=== PATIENT | female | born 1990 | race Caucasian/White ===

== ENCOUNTER → 2020-01-07 02:45 | Outpatient (BNVA) | payer MEDICAID, SELFPAY | PROVIDERS: Family Provider Family Medicine; Visit Provider Obstetrics & Gynecology Female Pelvic Medicine and Reconstructive Surgery | DX: N30.90 Cystitis, unspecified without hematuria (principal); N89.8 Other specified noninflammatory disorders of vagina; N76.0 Acute vaginitis; R10.819 Abdominal tenderness, unspecified site | CPT/HCPCS: 80053 ==

== ENCOUNTER → 2020-01-22 09:42 | Outpatient (BNVA) | payer MEDICAID, SELFPAY | PROVIDERS: Family Provider Family Medicine; Referring Provider Obstetrics & Gynecology Female Pelvic Medicine and Reconstructive Surgery; Visit Provider Obstetrics & Gynecology Female Pelvic Medicine and Reconstructive Surgery | DX: R10.2 Pelvic and perineal pain (principal) | CPT/HCPCS: 76830 ==

== ENCOUNTER 2020-01-27 12:16 | Outpatient (CLI) | payer MEDICAID, SELFPAY ==
[2020-01-27 12:50] LABS: Estmated Average Glucose 117; Hemoglobin A1C 5.7 % (4.0-6.0)
== END 2020-01-27 12:17 | disposition home or self-care (01) ==
LOC: LAB 12:17
PROVIDERS: Family Provider Family Medicine; PCP Nurse Practitioner Family; Visit Provider Obstetrics & Gynecology Female Pelvic Medicine and Reconstructive Surgery
DX: E66.01 Morbid (severe) obesity due to excess calories (principal)
CPT/HCPCS: 36415; 83036

== ENCOUNTER → 2020-03-09 08:51 | Outpatient (BNVA) | payer MEDICAID, SELFPAY | PROVIDERS: Family Provider Family Medicine; Visit Provider Psychiatry & Neurology Psychiatry | DX: F41.1 Generalized anxiety disorder (principal); F33.1 Major depressive disorder, recurrent, moderate | CPT/HCPCS: 99204 ==

== ENCOUNTER → 2020-04-07 08:42 | Outpatient (BNVA) | payer MEDICAID, SELFPAY | PROVIDERS: Family Provider Family Medicine; Visit Provider Counselor Professional | DX: F33.1 Major depressive disorder, recurrent, moderate (principal); F41.1 Generalized anxiety disorder | CPT/HCPCS: 90834 ==

== ENCOUNTER → 2020-04-08 07:53 | Outpatient (BNVA) | payer MEDICAID, SELFPAY | PROVIDERS: Family Provider Family Medicine; Visit Provider Psychiatry & Neurology Psychiatry | DX: F33.1 Major depressive disorder, recurrent, moderate (principal); F41.1 Generalized anxiety disorder | CPT/HCPCS: 99213 ==

== ENCOUNTER → 2020-04-30 08:51 | Outpatient (BNVA) | payer MEDICAID, SELFPAY | PROVIDERS: Family Provider Family Medicine; Visit Provider Counselor Professional | DX: F33.1 Major depressive disorder, recurrent, moderate (principal); F41.1 Generalized anxiety disorder | CPT/HCPCS: 90834 ==

== ENCOUNTER → 2020-05-20 09:08 | Outpatient (BNVA) | payer MEDICAID, SELFPAY | PROVIDERS: Family Provider Family Medicine; Visit Provider Psychiatry & Neurology Psychiatry | DX: F33.1 Major depressive disorder, recurrent, moderate (principal); F41.1 Generalized anxiety disorder | CPT/HCPCS: 99213 ==

== ENCOUNTER 2020-06-14 20:41 | Emergency (ER) | payer MEDICAID, SELFPAY ==
[2020-06-14 20:58] VITALS: BP 142/88; PULSE 69; RESP 16; TEMP 36.6; O2SAT 99; BMI 57.9
--- NOTE | 2020-06-14 21:53 | ECG_ITS ---
[facility] Test Date: 2020-06-14 Pat Name: Ally Savage Department: Room: Gender: Female Administrator Of Home Health: : 1990 Requested By: Long Araya Order Number: [id number] Gill MD: Fern Jean M.D. Measurements Intervals [place] Rate: 70 P: 38 OH: 172 QRS: 58 QRSD: 94 T: 43 QT: 373 QTc: 404 Interpretive Statements SINUS RHYTHM Compared to ECG 12/10/2018 07:56:26 Sinus bradycardia no longer present Electronically Signed On 06-15-2020 7:46:08 CDT by Fern Jean M.D. [email or web address] - Private Location [id number] f
--- NOTE | 2020-06-14 21:54 | XRR_ITS ---
PROCEDURE INFORMATION: Exam: XR Chest, 2 Views Exam date and time: 06/14/2020 10:35 PM Age: 29 years old Clinical indication: Chest pain; Type not specified; Additional info: SOB TECHNIQUE: Imaging protocol: XR of the chest Views: 2 views. COMPARISON: CR (CHEST, ) 06/14/2020 9:36 PM FINDINGS: Lungs: Lungs are clear. Pleural space: There is no pleural effusion or pneumothorax. Heart/Mediastinum: Cardiomediastinal contours are unremarkable. Bones/joints: Bones are unremarkable. XR/XR chest 2V* [id number] IMPRESSION: No acute findings.
[2020-06-14 23:20] LABS: Basophils # 0.1 10^3/uL (0.0-0.1); Basophils % 1.2 %; Eosinophils # 0.1 10^3/uL (0.0-0.8); Eosinophils % 2.8 %; Hemoglobin 14.6 g/dL (11.5-15.3); Mean Corpuscular HGB Conc 30.4 g/dL (30.0-36.0); Mean Corpuscular Hemoglobin 27.5 pg (28.0-34.0); Mean Corpuscular Volume 90.6 fL (81-99); Mean Platelet Volume 9.7 fL (7.4-10.4); Monocytes # 0.5 10^3/uL (0.2-0.9); Monocytes % 9.3 %; Neutrophils # 2.39 10^3/uL (1.8-7.7); Neutrophils % 47.3 %; Nucleated Red Blood Cells % 0 %; Platelet Count 231 10^3/cmm (130-400); Red Cell Distribution Width 13.5 % (12.1-15.1); White Blood Count 5.1 10^3/uL (4.0-10.0)
--- NOTE | 2020-06-14 23:22 | W.ED.SOB ---
HPI - SOB/Dyspnea General: Chief Complaint: Shortness of Breath/Dyspnea Stated Complaint: sob/cp Time Seen by Provider: 06/14/20 21:49 History of Present Illness: HPI Narrative: 29-year-old female complains of chest discomfort, and shortness of breath all day today. She said it started this morning. She is taken Tums, Mylanta, and other antacids without any relief. She denies any long car trips. She has had a minimal cough, with no sputum production, and no fever. She is tested for COVID every week where she works, and has been negative. She had the disease back in March. Pain is sharp, pleuritic in nature, worsens with deep breathing. MD elicited complaint: shortness of breath and chest pain Onset (ago): hour(s) Timing: constant Severity: moderate Exacerbating factors: movement, coughing and deep breaths Relieving factors: nothing Associated symptoms: Reports chest pain and cough (Minimal); Deny abdominal pain, chest congestion, dizziness, fever(s), nausea or rash Treatment prior to arrival: other Review of Systems Const: Denies: fever(s) Eyes: Denies: change in vision ENMT: Denies: swelling of lips/tongue, change in hearing or sinus pain Card: Reports: chest pain Resp: Denies: chest congestion GI: Denies: abdominal pain or nausea : Denies: dysuria or hematuria Musc: Denies: neck pain, back pain, joint redness or joint warmth Skin/Breast: Denies: rash, pruritus or erythema Neuro: Denies: headache(s), dizziness or vertigo Psych: Denies: anxiety PFSH ED PFSH: Medical History (Updated 06/15/20 @ 00:43 by Long Naranjo DO) Chronic migraine w/o aura w/o status migrainosus, not intractable Family History Father Heart disease Breast cancer Mother Heart disease Diabetes Hypercholesteremia Thyroid disease Hypertension Grandmother Breast cancer maternal Social History (Updated 03/09/20 @ 09:11 by Omer Bashir LPN) Smoking and tobacco status: never smoked Second hand smoke exposure: Yes (Occasionally) Smoking risk assessment/counseling performed?: No Alcohol intake: current Alcohol intake frequency: few times a month Alcohol type: hard liquor Current gender identity: Female Physical Exam Const: GENERAL APPEARANCE: well developed ORIENTATION/CONSCIOUSNESS: Yes oriented to person, Yes oriented to place and Yes oriented to time HENMT: COMMON NORMALS: normocephalic, external ears normal and Normal external nose present HEAD & SCALP: normocephalic FACE & SINUS: normal facial exam NOSE: Normal external nose present and No nasal discharge present EXTERNAL EAR: Yes external ears normal Eye: COMMON NORMALS: Equal, round and reactive pupils present, EOMs intact bilaterally and conjunctivae normal EYELID: eyelids normal CONJUNCTIVA: Yes conjunctivae normal PUPIL: Yes Equal, round and reactive pupils present Neck/C-Spine: GENERAL: No tracheal deviation Chest: COMMONS NORMALS: normal inspection of the chest CHEST: Yes tenderness Resp: COMMON NORMALS: clear to auscultation bilaterally EFFORT & INSPECTION: No tachypneic, No respiratory distress, No retractions, No uses accessory muscles and No tracheal deviation AUSCULTATION: clear to auscultation bilaterally, no rhonchi, no wheezes and lung sounds not diminished Cardio: COMMON NORMALS: regular rate and regular rhythm RATE: regular rate RHYTHM: regular rhythm HEART SOUNDS: no murmurs PERIPHERAL PULSES: radial pulses present GI: INSPECTION: No abdominal distension AUSCULTATION: No Hyperactive bowel sounds present and No Hypoactive bowel sounds present PALPATION: No Guarding due to palpation present (GI) and No Rigid due to palpation PERCUSSION: no dullness to percussion and no tympanic to percussion Neuro: SENSORIUM/ORIENTATION: Yes oriented to person, Yes oriented to place and Yes oriented to time Psych: COMMON NORMALS: mental status grossly normal Skin: COMMON NORMALS: no rashes or lesions noted GENERAL SKIN EXAM: no rashes or lesions noted Course Vital Signs: Vital signs: Vital Signs Temperature 97.9 F 06/14/20 20:58 Pulse Rate 60 06/15/20 01:24 Respiratory Rate 17 06/15/20 01:24 Blood Pressure 149/66 06/15/20 01:24 Pulse Oximetry 95 06/15/20 01:24 MDM - SOB/Dyspnea MDM Narrative: Medical decision making narrative: 29-year-old female with chest discomfort, and some shortness of breath. She is screened for COVID every week, and has been negative. She actually had the illness in March. Her chest x-ray is negative. Her white blood cell count is 5. Her hemoglobin is 14.6. Her troponin is negative. She has a normal sinus rhythm with no ST changes on EKG. Her d-dimer is negative. GI cocktail did not significantly relieve her pain. She has reproducible chest wall tenderness. She will be treated for costochondritis Lab Data: Labs: Lab Results 06/14/20 06/14/20 06/14/20 Range/Units 23:10 23:10 23:10 WBC 5.1 (4.0-10.0) 10^3/ uL RBC 5.30 (4.1-5.3) 10^6/u L Hgb 14.6 (11.5-15.3) g/dL Hct 48.0 H (37.0-47.0) % MCV 90.6 (81-99) fL MCH 27.5 L (28.0-34.0) pg MCHC 30.4 (30.0-36.0) g/dL RDW 13.5 (12.1-15.1) % Plt Count 231 (130-400) 10^3/c mm MPV 9.7 (7.4-10.4) fL Neut % (Auto) 47.3 % Lymph % (Auto) 39.0 % [place] % (Auto) 9.3 % Eos % (Auto) 2.8 % Baso % (Auto) 1.2 % Neut # (Auto) 2.39 (1.8-7.7) 10^3/u L Lymph # (Auto) 2.0 (0.8-4.8) 10^3/u L [place] # (Auto) 0.5 (0.2-0.9) 10^3/u L Eos # (Auto) 0.1 (0.0-0.8) 10^3/u L Baso # (Auto) 0.1 (0.0-0.1) 10^3/u L Nucleated RBC % (a uto) 0 % Nucleated RBCs # 0.0 /100WBC D-Dimer 0.31 (0-0.59) ug/mIFE U Sodium 139 (136-145) mmol/L Potassium 4.3 (3.5-5.1) mmol/L Chloride 105 (98-107) mmol/L Carbon Dioxide 22 (22-29) mmol/L Anion Gap 16.3 (5-19) BUN 12 (6-20) mg/dL Creatinine 0.8 (0.5-0.9) mg/dL GFR Calculation 84.8 L (90-130) mL/min Glucose 101 (65-115) mg/dL Calculated Osmolal ity 284 L (285-295) mOsm/k g Calcium 8.8 (8.5-10.5) mg/dL Total Bilirubin 0.2 (0.15-1.2) mg/dL AST 19 (0-32) U/L ALT 41 H (0-33) U/L Alkaline Phosphata se 95 (35-105) IU/L Troponin T Gen 5 n g/L (0-10) ng/L C-Reactive Protein 5.1 H (0.0-4.9) mg/L Total Protein 6.6 (6.6-8.7) g/dL Albumin 4.2 (3.5-5.2) g/dL Globulin 2.4 (1.3-4.6) g/dL HCG, Qual (Negative) 06/14/20 06/14/20 Range/Units 23:10 23:10 WBC (4.0-10.0) 10^3/ uL RBC (4.1-5.3) 10^6/u L Hgb (11.5-15.3) g/dL Hct (37.0-47.0) % MCV (81-99) fL MCH (28.0-34.0) pg MCHC (30.0-36.0) g/dL RDW (12.1-15.1) % Plt Count (130-400) 10^3/c mm MPV (7.4-10.4) fL Neut % (Auto) % Lymph % (Auto) % [place] % (Auto) % Eos % (Auto) % Baso % (Auto) % Neut # (Auto) (1.8-7.7) 10^3/u L Lymph # (Auto) (0.8-4.8) 10^3/u L [place] # (Auto) (0.2-0.9) 10^3/u L Eos # (Auto) (0.0-0.8) 10^3/u L Baso # (Auto) (0.0-0.1) 10^3/u L Nucleated RBC % (a uto) % Nucleated RBCs # /100WBC D-Dimer (0-0.59) ug/mIFE U Sodium (136-145) mmol/L Potassium (3.5-5.1) mmol/L Chloride (98-107) mmol/L Carbon Dioxide (22-29) mmol/L Anion Gap (5-19) BUN (6-20) mg/dL Creatinine (0.5-0.9) mg/dL GFR Calculation (90-130) mL/min Glucose (65-115) mg/dL Calculated Osmolal ity (285-295) mOsm/k g Calcium (8.5-10.5) mg/dL Total Bilirubin (0.15-1.2) mg/dL AST (0-32) U/L ALT (0-33) U/L Alkaline Phosphata se (35-105) IU/L Troponin T Gen 5 n g/L 6 (0-10) ng/L C-Reactive Protein (0.0-4.9) mg/L Total Protein (6.6-8.7) g/dL Albumin (3.5-5.2) g/dL Globulin (1.3-4.6) g/dL HCG, Qual Negative (Negative) Discharge Plan Discharge Patient Disposition: Home Clinical Impression: Anterior chest wall pain Condition: Stable Prescriptions: [place] 5-325 mg tablet 1 tab PO Q6H Qty: 10 RF: 0 Medrol (Antony) 4 mg tablets,dose pack See Rx Instructions .ROUTE .COMPLEX Qty: 21 RF: 0 No Action cholecalciferol (vitamin D3) PO DAILY RF: 0 acetaminophen [Tylenol Extra Strength] 500 mg tablet 1,000 mg PO TID PRNRF: 0 ibuprofen 800 mg tablet 800 mg PO BID PRN (Reason: pain) RF: 0 hydroxyzine HCl 25 mg tablet 50 mg PO .HS PRN (Reason: sleep) Qty: 60 RF: 2 buspirone 15 mg tablet 15 mg PO TID Qty: 90 RF: 2 topiramate [Topamax] 50 mg tablet 50 mg PO DAILY Qty: 90 RF: 3 terconazole 0.8 % cream 1 appful VAGINAL DAILY PRN (Reason: candidiASIS) 7 Days Qty: 20 RF: 2 Discharge Orders: Discharge Order (Routine); Ordered 06/15/20 Ordered By: Long Naranjo Referrals: Xuan Pineda FNP [Primary Care Provider] - 4-7 days Discharge Diet: Advance as tolerated Discharge Activity: Increase activity as tolerated Patient Instructions: Chest Pain (ED), Costochondritis (ED) Activity Restrictions/Additional Instructions: Return for worsening pain despite treatment, worsening shortness of breath, fever greater than 100, other concerning symptoms Discharge Date/Time: 06/15/20 01:24 Coding Level of Care Code ED Vocational Case Manager for Chg Fwd Exam Comprehensive
[2020-06-14 23:34] LABS: HCG, Serum Qual Negative (Negative)
[2020-06-14 23:41] LABS: Alanine Aminotransferase 41 U/L (0-33); Albumin Level 4.2 g/dL (3.5-5.2); Alkaline Phosphatase 95 IU/L (35-105); Aspartate Amino Transferase 19 U/L (0-32); Blood Urea Nitrogen 12 mg/dL (6-20); C Reactive Protein 5.1 mg/L (0.0-4.9); Calcium 8.8 mg/dL (8.5-10.5); Carbon Dioxide 22 mmol/L (22-29); Chloride 105 mmol/L (98-107); Globulin 2.4 g/dL (1.3-4.6); Glomerular Filtration Rate 84.8 mL/min (90-130); Glucose 101 mg/dL (65-115); Osmolality Calculated 284 mOsm/kg (285-295); Sodium 139 mmol/L (136-145); Total Bilirubin 0.2 mg/dL (0.15-1.2); Total Protein 6.6 g/dL (6.6-8.7)
[2020-06-14 23:43] LABS: Troponin T (5th) Once 6 ng/L (0-10)
[2020-06-14 23:45] LABS: Anion Gap 16.3 (5-19); Potassium 4.3 mmol/L (3.5-5.1)
[2020-06-14 23:53] VITALS: BP 169/80; PULSE 69; RESP 18; O2SAT 98
[2020-06-15 00:13] LABS: D Dimer 0.31 ug/mIFEU (0-0.59)
[2020-06-15] MEDS: lidocaine 2% viscous 15 ML, aluminum-mag hydrox-simethicon 30 ML, sucralfate oral liq 1 GM PO (00:29)
[2020-06-15 00:34] VITALS: RESP 18; O2SAT 97
[2020-06-15] MEDS: fentaNYL 50 mcg/mL INJ 2mL 100 MCG IVP (00:34)
[2020-06-15] MEDS: ketorolac 30 mg/mL INJ IVP (00:37)
[2020-06-15 00:39] VITALS: BP 154/88; PULSE 66; RESP 18; O2SAT 98
[2020-06-15] MEDS: ondansetron 2 mg/ML SDV 2 mL 4 MG IVP (01:10)
[2020-06-15 01:24] VITALS: BP 149/66; PULSE 60; RESP 17; O2SAT 95
== END 2020-06-15 01:24 | disposition home or self-care (01) ==
PROVIDERS: Emergency Provider Emergency Medicine; PCP Nurse Practitioner Family
DX: R07.89 Other chest pain (principal); Z77.22 Contact with and (suspected) exposure to environmental tobacco smoke (acute) (chronic)
CPT/HCPCS: 12345; 71045; 71046; 80053; 84484; 84703; 85025; 85378; 86140; 93005; 96374; 96375; 99282; 99284; J1885; J2405; J3010

== ENCOUNTER → 2020-06-18 08:38 | Outpatient (BNVA) | payer MEDICAID, SELFPAY | PROVIDERS: Family Provider Family Medicine; Visit Provider Counselor Professional | DX: F41.1 Generalized anxiety disorder (principal); F33.1 Major depressive disorder, recurrent, moderate | CPT/HCPCS: 90834 ==

== ENCOUNTER → 2020-07-09 13:02 | Outpatient (BNVA) | payer MEDICAID, SELFPAY | PROVIDERS: Family Provider Family Medicine; Visit Provider Nurse Practitioner Family | DX: J02.9 Acute pharyngitis, unspecified (principal) | CPT/HCPCS: 87071; 87880 ==

== ENCOUNTER → 2020-08-12 09:13 | Outpatient (BNVA) | payer MEDICAID, SELFPAY | PROVIDERS: Family Provider Family Medicine; Visit Provider Psychiatry & Neurology Psychiatry | DX: F33.1 Major depressive disorder, recurrent, moderate (principal); F41.1 Generalized anxiety disorder | CPT/HCPCS: 99214 ==

== ENCOUNTER → 2020-09-10 08:28 | Outpatient (BNVA) | payer MEDICAID, SELFPAY | PROVIDERS: Family Provider Family Medicine; Visit Provider Psychiatry & Neurology Psychiatry | DX: F33.1 Major depressive disorder, recurrent, moderate (principal); F41.1 Generalized anxiety disorder | CPT/HCPCS: 99213 ==

== ENCOUNTER → 2020-09-22 10:39 | Outpatient (BNVA) | payer MEDICAID, SELFPAY | PROVIDERS: Family Provider Family Medicine; Visit Provider Obstetrics & Gynecology | DX: N89.8 Other specified noninflammatory disorders of vagina (principal); N93.8 Other specified abnormal uterine and vaginal bleeding; R68.82 Decreased libido; F33.1 Major depressive disorder, recurrent, moderate | CPT/HCPCS: 83001 ==

== ENCOUNTER → 2020-10-27 09:53 | Outpatient (BNVA) | payer MEDICAID, SELFPAY | PROVIDERS: Family Provider Family Medicine; Visit Provider Psychiatry & Neurology Psychiatry | DX: F33.1 Major depressive disorder, recurrent, moderate (principal); F41.1 Generalized anxiety disorder | CPT/HCPCS: 99214 ==

== ENCOUNTER → 2020-11-28 10:15 | Outpatient (BNVA) | payer MEDICAID, SELFPAY | PROVIDERS: Family Provider Family Medicine; Visit Provider Orthopaedic Surgery | DX: Z20.822 Contact with and (suspected) exposure to COVID-19 (principal); R22.32 Localized swelling, mass and lump, left upper limb | CPT/HCPCS: 87635 ==

== ENCOUNTER → 2020-12-02 08:26 | Outpatient (BNVA) | payer MEDICAID, SELFPAY | PROVIDERS: Family Provider Family Medicine; Visit Provider Psychiatry & Neurology Psychiatry | DX: F41.1 Generalized anxiety disorder (principal); F33.1 Major depressive disorder, recurrent, moderate | CPT/HCPCS: 99213 ==

== ENCOUNTER 2020-12-03 06:14 | Day surgery (SDC) | payer MEDICAID, SELFPAY ==
[2020-12-02 08:29] VITALS: BMI 57.6
[2020-12-03 06:42] VITALS: BP 141/94; PULSE 66; RESP 18; TEMP 36.6; O2SAT 100
[2020-12-03] MEDS: sodium chloride 0.9% 1,000 ML 30 ML IV (07:00)
--- NOTE | 2020-12-03 07:37 | W.PM.OPSUD ---
Surgery/Procedure H&P Update DATE OF PROCEDURE: December 03, 2020 DATE H&P PERFORMED: 11/17/20 PREOP DIAGNOSIS: Mass left wrist PLANNED PROCEDURE: Operation Date: 12/03/20 08:00 Proposed Procedures p Excision of mass of left wrist 88570 R22.32(Left) - Shayne Borrego MD
--- NOTE | 2020-12-03 07:48 | ANES.PREANE2 ---
Pre-Anesthetic Assessment Pre-Anesthetic Assessment: Height/Weight: Height 1.7 m Weight 166.922 kg Temp Pulse Resp BP Pulse Ox 97.9 F 66 18 141/94 100 12/03/20 06:42 12/03/20 06:42 12/03/20 06:42 12/03/20 06:42 12/03/20 06:42 Preop Diagnosis: Mass left wrist Proposed Procedure: Operation Date: 12/03/20 08:00 Proposed Procedures p Excision of mass of left wrist 58207 R22.32(Left) - Shayne Borrego MD Was Beta Faith taken within 24 hours: N/A Last intake: Intake Last Liquid Date 12/02/20 Last Liquid Time 23:45 Last Solid Date 12/02/20 Last Solid Time 20:00 Social: Social History: No alcohol and No tobacco Exam: Pre-Anes Outpt Exam: alert, oriented x 3, clear to auscultation bilaterally and regular rate & rhythm Airway: Submandibular: WNL Cervical ROM: WNL MP: 2 Dentition: Full Metabolic: Metabolic: Morbid obesity Neuropsych: Neuropsych: Anxiety, Depression and ROMERO Anesthetic Plan: ASA status: 3 Anesthesia: MAC Risk of > 500 ml blood loss (7ml/kg in children): No PFSH Anesthesia PFSH: Medical History Chronic migraine w/o aura w/o status migrainosus, not intractable Surgical History History of bilateral tubal ligation History of section, low transverse History of hysterectomy (~05/15/19) Total vaginal hysterectomy converted to a total abdominal hysterectomy with Dr. Kelley Family History Father Heart disease Breast cancer Mother Heart disease Diabetes Hypercholesteremia Thyroid disease Hypertension Grandmother Breast cancer maternal Social History Smoking and tobacco status: never smoked Alcohol intake: current Alcohol intake frequency: few times a month Alcohol type: hard liquor Data Anesthesia Cardiac Studies: No Data to Display
--- NOTE | 2020-12-03 08:35 | PM.OP ---
Operative Report Date of procedure: December 03, 2020 Pre-op Diagnosis: Mass left wrist Post-op diagnosis: same Post-op Diagnosis: Ganglion left wrist Post-op Findings: Same Procedure Done: Excision ganglion left wrist Specimens removed/disposition: Ganglion was removed but not sent for pathology Surgeon: Shayne Borrego Anesthesia: MAC and Local Estimated blood loss (mL): 5 Tourniquet time (min): 8 Complications: None Findings: Patient had a ganglion cyst over the central dorsal wrist approximately 1 cm in diameter adherent to the extensor Condition: stable Disposition: PACU Procedure: The patient was taken to the operating room and given a sedation by the anesthesia service. The left upper extremity was prepped and draped with a tourniquet on the left forearm. The tourniquet was inflated to 250 mmHg. A 1 cm transverse incision was made over the central dorsal wrist and dissection carried down bluntly revealing the ganglion. Utilizing a mosquito hemostat it was sequentially dissected off of the extensor tendon. The tourniquet was deflated. What minimal bleeding encountered was a dealt with with electrocautery. Skin edges were closed with two 3-0 Prolene sutures. Xeroflo gauze, 4 x 4's, and a compressive wrap were applied. The patient was taken recovery room in stable condition.
[2020-12-03 08:37] VITALS: BP 125/75; PULSE 67; RESP 18; TEMP 36.6; O2SAT 97
[2020-12-03 09:07] VITALS: BP 123/74; PULSE 69; RESP 18; TEMP 36.6; O2SAT 97
--- NOTE | 2020-12-03 11:44 | ANE.PACU2 ---
Inpatient post-anesthesia follow up: Airway intact: Yes Vital signs: Temperature 97.9 F Pulse Rate 69 Respiratory Rate 18 Blood Pressure 123/74 Pulse Oximetry 97 Oxygen Delivery Me thod Room Air Oxygen Flow Rate Fraction of Inspir ed Oxygen Hydration adequate: Yes Nausea and vomiting: No Pain level: 1 Mental status: Baseline
== END 2020-12-03 09:20 | disposition home or self-care (01) ==
PROVIDERS: PCP Nurse Practitioner Family; Visit Provider Orthopaedic Surgery
PROC: (CPT 25111; principal; 2020-12-03 08:00)
DX: M67.432 Ganglion, left wrist (principal); E66.01 Morbid (severe) obesity due to excess calories; Z68.43 Body mass index [BMI] 50.0-59.9, adult; F41.9 Anxiety disorder, unspecified; F32.9 Major depressive disorder, single episode, unspecified
CPT/HCPCS: 25111; J0690; J2250; J2704; J3010; J3490; J7030

== ENCOUNTER 2020-12-16 09:02 | Outpatient (CLI) | payer MEDICAID, SELFPAY | END 2020-12-16 09:03 | disposition home or self-care (01) | LOC: SPT 09:03 | PROVIDERS: PCP Nurse Practitioner Family; Visit Provider Orthopaedic Surgery | DX: Z46.89 Encounter for fitting and adjustment of other specified devices (principal); R22.32 Localized swelling, mass and lump, left upper limb | CPT/HCPCS: L3908 ==

== ENCOUNTER → 2020-12-31 07:43 | Outpatient (BNVA) | payer MEDICAID, SELFPAY | PROVIDERS: PCP Nurse Practitioner Family; Visit Provider Counselor Professional | DX: F33.1 Major depressive disorder, recurrent, moderate (principal); F41.1 Generalized anxiety disorder | CPT/HCPCS: 90834 ==

== ENCOUNTER 2021-03-11 06:00 | Outpatient (RCR) | payer MEDICAID, SELFPAY | END 2021-04-07 23:59 | disposition home or self-care (01) | LOC: SPT 06:00 | PROVIDERS: PCP Nurse Practitioner Family; Referring Provider Nurse Practitioner Family; Visit Provider Nurse Practitioner Family | DX: M54.16 Radiculopathy, lumbar region (principal) | CPT/HCPCS: 97110; 97161; G0283 ==

== ENCOUNTER → 2021-05-25 15:53 | Outpatient (BNVA) | payer OTHER, SELFPAY | PROVIDERS: PCP Nurse Practitioner Family; Visit Provider Psychiatry & Neurology Psychiatry | DX: F33.1 Major depressive disorder, recurrent, moderate (principal); F41.1 Generalized anxiety disorder | CPT/HCPCS: 99214 ==

== ENCOUNTER → 2021-06-10 08:27 | Outpatient (BNVA) | payer MEDICAID, SELFPAY | PROVIDERS: PCP Nurse Practitioner Family; Referring Provider Nurse Practitioner Family; Visit Provider Anesthesiology Pain Medicine | DX: M51.16 Intervertebral disc disorders with radiculopathy, lumbar region (principal); M47.816 Spondylosis without myelopathy or radiculopathy, lumbar region; M79.604 Pain in right leg; M79.605 Pain in left leg | CPT/HCPCS: 99204 ==

== ENCOUNTER → 2021-07-08 08:38 | Outpatient (BNVA) | payer MEDICAID, SELFPAY | PROVIDERS: PCP Nurse Practitioner Family; Visit Provider Anesthesiology Pain Medicine | DX: M51.16 Intervertebral disc disorders with radiculopathy, lumbar region (principal); M47.816 Spondylosis without myelopathy or radiculopathy, lumbar region; M79.604 Pain in right leg; M79.605 Pain in left leg | CPT/HCPCS: 99213 ==

== ENCOUNTER 2021-07-08 09:42 | Outpatient (CLI) | payer MEDICAID, SELFPAY ==
--- NOTE | 2021-07-08 09:46 | XR_ITS ---
WS: [id number] LUMBAR SPINE FLEXION AND EXTENSION TECHNIQUE: 3 views of the lumbar spine: Lateral neutral, flexion, and extension views. CLINICAL INFORMATION: M47.816 - Spondylosis without myelopathy or radiculopathy... COMPARISON: None. FINDINGS: Slight exaggeration of the normal lumbar lordosis. Disc space narrowing worse L5-S1. No instability o n flexion-extension. Chronic anterior wedging L1. Slight retrolisthesis L2 on L3. XR/XR lumbar spine f/e only [id number] IMPRESSION: 1. Disc space narrowing worse at L5-S1. Mild disc space narrowing L2-3 and L3- 4. 2. No instability on flexion-extension.
== END 2021-07-08 09:43 | disposition home or self-care (01) ==
PROVIDERS: PCP Nurse Practitioner Family; Visit Provider Anesthesiology Pain Medicine
DX: M47.816 Spondylosis without myelopathy or radiculopathy, lumbar region (principal)
CPT/HCPCS: 72120

== ENCOUNTER → 2021-07-21 10:38 | Outpatient (BNVA) | payer MEDICAID, SELFPAY | PROVIDERS: PCP Nurse Practitioner Family; Visit Provider Anesthesiology Pain Medicine | DX: G89.29 Other chronic pain (principal); M51.16 Intervertebral disc disorders with radiculopathy, lumbar region; M47.816 Spondylosis without myelopathy or radiculopathy, lumbar region; M79.604 Pain in right leg; M79.605 Pain in left leg; M62.830 Muscle spasm of back | CPT/HCPCS: 99214 ==

== ENCOUNTER 2021-11-09 09:29 | Outpatient (CLI) | payer MEDICAID, SELFPAY ==
--- NOTE | 2021-11-09 09:37 | CT_ITS ---
WS: [id number] CT LUMBAR SPINE, noncontrast. HISTORY: M54.16 - Radiculopathy, lumbar region TECHNIQUE: Contiguous 2.5 mm axial imaging are performed. Sagittal and coronal reformats are submitte d and reviewed. All CT scans at [facility] use at least one of these dose optimization techni ques: automated exposure control; mA and/or kV adjustment per patient size (includes targeted exams w here dose is matched to clinical indication); or iterative reconstruction. IV contrast: None DLP: 1774.12 mGy-cm. COMPARISON: None available. Quality of this examination is compromised by body habitus. Posterior lumbar alignment is normal. Mild disc space narrowing throughout the lumbar spine. No fractures. There are small endplate osteoph ytes at all levels. L1-2: Mild annular disc bulging. There is a very shallow RIGHT foraminal disc protrusion and small fo raminal osteophytes. No high-grade stenosis. L2-3: Mild annular disc bulging. There is a focal osteophytic ridging posteriorly encroaching into th e subarticular recesses and a small focal disc protrusion centrally. There is mild encroachment upon the ventral thecal sac. Mild central and bilateral subarticular recess stenosis. Slightly greater ost eophyte encroachment upon the LEFT. L3-4: Mild osteophytic ridging and annular disc bulging. Mild encroachment upon the ventral thecal sa c and mild facet arthritis. Mild central stenosis. L4-5: Mild facet arthritis. L5-S1: Mild osteophytic ridging. Small foraminal osteophytes resulting in mild LEFT foraminal narrowi ng. Visualized retroperitoneum is normal. CT/CT lumbar spine wo con* [id number] IMPRESSION: 1. Quality of this examination is significantly compromised by body habitus. 2. No severe central or foraminal stenosis identified. 3. Mild central and bilateral subarticular recess stenosis due to combination of disc disease and osteophytes at L2-3. 4. Mild central stenosis at L3-4.
== END 2021-11-09 09:30 | disposition home or self-care (01) ==
LOC: RAD 09:33
PROVIDERS: PCP Nurse Practitioner Family; Visit Provider Anesthesiology Pain Medicine
DX: M54.16 Radiculopathy, lumbar region (principal); M48.061 Spinal stenosis, lumbar region without neurogenic claudication; M25.78 Osteophyte, vertebrae
CPT/HCPCS: 72131

== ENCOUNTER → 2021-11-23 09:35 | Outpatient (BNVA) | payer MEDICAID, SELFPAY | PROVIDERS: PCP Nurse Practitioner Family; Visit Provider Anesthesiology Pain Medicine | DX: M51.16 Intervertebral disc disorders with radiculopathy, lumbar region (principal); M47.816 Spondylosis without myelopathy or radiculopathy, lumbar region; M79.604 Pain in right leg; M79.605 Pain in left leg; M62.830 Muscle spasm of back; Z87.891 Personal history of nicotine dependence | CPT/HCPCS: 99214 ==

== ENCOUNTER 2021-12-03 09:16 | Outpatient (CLI) | payer MEDICAID, SELFPAY ==
--- NOTE | 2021-12-03 09:33 | MM_ITS ---
WS: [id number] DIAGNOSTIC BILATERAL DIGITAL MAMMOGRAM WITH CAD RIGHT breast ultrasound, limited HISTORY: BREAST PAIN COMPARISON: None available. TECHNIQUE: Bilateral craniocaudad, mediolateral oblique, and mediolateral views are submitted. Spot c ompression RIGHT MLO and cc. Computer aided detection utilized. Breast composition: The breasts are almost entirely fatty. No suspicious masses or calcifications. Tr iangular marker is placed within the soft tissue just medial and inferior to the breast. There is no underlying mass identified. Ultrasound will be performed. RIGHT breast ultrasound, limited. Ultrasound is directed along the chest wall in the area of the palpable abnormality just medial to th e RIGHT breast. There is no suspicious mass identified. MM/[place] [id number] IMPRESSION: BI-RADS: 1-Negative FOLLOW UP: Age 40
== END 2021-12-03 09:17 | disposition home or self-care (01) ==
PROVIDERS: PCP Nurse Practitioner Family; Visit Provider Nurse Practitioner Family
DX: N64.4 Mastodynia (principal)
CPT/HCPCS: 76642; 77066

== ENCOUNTER → 2021-12-16 13:24 | Outpatient (BNVA) | payer MEDICAID, SELFPAY | PROVIDERS: PCP Nurse Practitioner Family; Visit Provider Anesthesiology Pain Medicine | DX: M54.16 Radiculopathy, lumbar region (principal); Z87.891 Personal history of nicotine dependence | CPT/HCPCS: 64483; 64484; J1100; J3490 ==

== ENCOUNTER 2021-12-26 13:31 | Emergency (ER) | payer MEDICAID, SELFPAY ==
[2021-12-26 13:42] VITALS: BP 161/97; PULSE 77; RESP 16; TEMP 36.8; O2SAT 98; BMI 57.9
[2021-12-26 13:45] VITALS: BP 164/102; PULSE 79; RESP 18; TEMP 36.3; O2SAT 100
--- NOTE | 2021-12-26 13:50 | USCV_ITS ---
Ally Savage Age: 31 Gender: F : 1990 Exam Date: 12/26/2021 13:59 Ordering Phys: Pippa Oviedo Technologist: Hyun Connolly [place] [facility] [place]: PAIN IN LT LEG. HISTORY: Pain in Lt Leg. PROCEDURES: Venous duplex imaging was performed in only the left lower extremity. The following venous structures were evaluated: common femoral vein, profunda vein, proximal portion of the greater saphenous vein, superficial femoral vein, and the popliteal vein. In addition, the posterior tibial and peroneal trunk were evaluated. Serial compression, augmentation maneuvers, and spectral Doppler flow evaluation were performed. FINDINGS: Normal 2-D Doppler and augmentation and compressibility throughout the lower extremity venous structures. Additional imaging through the proximal calf veins also reveals no thrombus. Limited evaluation of the greater saphenous vein is patent with no thrombus.. The veins were found to be easily compressible with spontaneous blood flow. Non pulsatile flow pattern. CONCLUSIONS No evidence of DVT in the above-mentioned identifiable veins. Dr Mary Carmen Azul MD [facility] (Electronically Signed) Final Date: 26 December 2021 17:10 S
--- NOTE | 2021-12-26 13:50 | ED_ITS ---
HPI - Extremity Problem General: Chief complaint: Extremity Injury, Lower Stated complaint: left leg pain Time Seen by Provider: 12/26/21 13:35 Source: patient Mode of arrival: ambulatory Limitations: no limitations History of Present Illness: Patient is a 31-year-old female presents to ED today with complaints of left lower leg pain and swelling. Patient states symptoms began approximately an hour ago. She has not had any injury or trauma. She does report a minor toenail procedure by Dr. Gamino recently. No other surgeries. No periods of prolonged inactivity. Denies long car rides/plane ri adri. She is not on hormonal therapy. She has not noticed any redness or color/temperature changes. MD Complaint: extremity pain and extremity swelling Onset (ago): hour(s) Pain Consistency: constant Location: left and lower extremity Radiation: none Relieving factors: immobilization Exacerbating factors: weight bearing and walking Associated symptoms: Reports no associated symptoms; Deny chest pain, fever(s) or rash Review of Systems Const: Denies: fever(s), chills, body aches, fatigue or malaise Card: Denies: chest pain Resp: Denies: dyspnea Musc: Reports: extremity pain and extremity swelling; Denies: neck pain, back pain, joint pain, joint swelling, joint redness or limited range of motion Skin/Breast: Denies: rash Neuro: Denies: numbness in extremities or sensory changes PFS ED PFSH: Medical History Chronic migraine w/o aura w/o status migrainosus, not intractable Surgical History History of bilateral tubal ligation History of section, low transverse History of hysterectomy (~05/15/19) Total vaginal hysterectomy converted to a total abdominal hysterectomy with Dr. Kelley Family History Father Heart disease Breast cancer Mother Heart disease Diabetes Hypercholesteremia Thyroid disease Hypertension Grandmother Breast cancer maternal Other NEWSOME (nonalcoholic steatohepatitis) Social History Smoking and tobacco status: former smoker Second hand smoke exposure: No Alcohol intake: current Alcohol intake frequency: few times a month Alcohol type: hard liquor History of recent travel: No Physical Exam Const: COMMON NORMALS: no acute distress, patient oriented x3, no limitations and alert GENERAL APPEARANCE: cooperative NUTRITIONAL APPEARANCE: obese Extremity: COMMON NORMALS: capillary refill normal and no joint enlargement GENERAL: Yes normal exam except as noted OTHER: pt reports swelling to L LE but I cannot visualize anything obvious; she does have L calf pain with positive Maeve's; extremity is normal color/temp when compared to R; she has normal DP/PT pulses and cap refill Neuro: COMMON NORMALS: patient oriented x3, moves all extremities, no focal motor deficits, no sensory deficits noted and gait normal SENSORIUM/ORIENTATION: Yes alert Skin: COMMON NORMALS: no rashes or lesions noted GENERAL SKIN EXAM: no rashes or lesions noted Course Vital Signs: Vital signs: Vital Signs Temperature 97.3 F L 12/26/21 13:45 Pulse Rate 75 12/26/21 13:53 Respiratory Rate 18 12/26/21 13:53 Blood Pressure 151/87 12/26/21 13:53 Pulse Oximetry 99 12/26/21 13:53 MDM - Extremity (Nontraumatic) Medical Decision Making US L LE venous negative for DVT. Recommend PCP follow up-states she has an appointment on . Return to ED precautions given. Discharge Plan Discharge Patient Disposition: Home Clinical Impression: Acute pain of left lower extremity Condition: Stable Prescriptions: No Action cholecalciferol (vitamin D3) See Rx Instructions PO DAILY 0RF Label Comments: 2 gummies Rx Instructions: 2,000 mg PO daily; acetaminophen [Tylenol Extra Strength] 500 mg tablet 1,000 mg PO TID PRN (Reason: Pain) 0RF ibuprofen 800 mg tablet 800 mg PO BID PRN (Reason: pain) 0RF paroxetine HCl [Paxil] 20 mg tablet 20 mg PO DAILY Qty: 30 2RF hydroxyzine HCl 25 mg tablet 50 mg PO .HS PRN (Reason: sleep) Qty: 60 2RF terbinafine HCl 250 mg tablet 250 mg PO DAILY 14 Days Qty: 14 0RF triamcinolone acetonide 0.1 % lotion 1 applic topical TID Qty: 60 2RF terbinafine HCl 250 mg tablet 250 mg PO DAILY 14 Days Qty: 14 0RF fluticasone propionate [Flonase Allergy Relief] 50 mcg/actuation spray,suspension 1 spray intranasal DAILY 0RF Rx Instructions: administer into each nostril diclofenac sodium 75 mg tablet,delayed release (DR/EC) 75 mg PO BID 0RF topiramate 25 mg tablet 25 mg PO DAILY 0RF tizanidine 4 mg capsule 4 mg PO DAILY PRN (Reason: spasm ) 30 Days Qty: 30 1RF silver sulfadiazine 1 % cream 1 applic topical BID 14 Days Qty: 50 2RF Rx Instructions: apply a 1.5 mm thickness Discharge Orders: Discharge ED (Routine); Ordered 12/26/21 Ordered By: Pippa Oviedo Referrals: Xuan Pineda FNP [Primary Care Provider] - Coding Level of Care Code ED Medical Assistant Instructor for Chg Fwd Exam Expanded Problem Focused
[2021-12-26 13:53] VITALS: BP 151/87; PULSE 75; RESP 18; O2SAT 99
[2021-12-26 14:49] VITALS: BP 112/67; PULSE 95; RESP 16; O2SAT 97
== END 2021-12-26 14:50 | disposition home or self-care (01) ==
PROVIDERS: Emergency Provider Physician Assistant; PCP Nurse Practitioner Family
DX: M79.605 Pain in left leg (principal)
CPT/HCPCS: 93971; 99282

== ENCOUNTER → 2022-01-10 07:53 | Outpatient (BNVA) | payer MEDICAID, SELFPAY | PROVIDERS: PCP Nurse Practitioner Family; Visit Provider Podiatrist Foot & Ankle Surgery | DX: Z98.890 Other specified postprocedural states (principal); Z87.891 Personal history of nicotine dependence | CPT/HCPCS: 99213 ==

== ENCOUNTER 2022-02-24 12:06 | Outpatient (CLI) | payer MEDICAID, SELFPAY ==
--- NOTE | 2022-02-24 12:16 | USCV_ITS ---
Ally Savage Age: 31 Gender: F : 1990 Exam Date: 02/24/2022 12:28 Ordering Phys: Xuan PinedaP PATENT AGENT Technologist: Exam Location: [facility] [place] Indication: Murmur BP: 120 / 80 HR: 76 Rhythm: Sinus Technical Quality: Adequate MEASUREMENTS (Male / Female) Normal Values 2D ECHO LV Diastolic Diameter PLAX 3.2 cm 4.2 - 5.9 / 3.9 - 5.3 cm LV Systolic Diameter PLAX 2.6 cm IVS Diastolic Thickness 1.0 cm 0.6 - 1.0 / 0.6 - 0.9 cm IVS Systolic Thickness 1.2 cm LVPW Diastolic Thickness 0.9 cm 0.6 - 1.0 / 0.6 - 0.9 cm LVPW Systolic Thickness 1.3 cm LVOT Diameter 2.1 cm LV Ejection Fraction 2D Teich 20.2 % LV Ejection Fraction MOD 2C 67.2 % LV Ejection Fraction 2C AL 66.2 % LA Diameter 2.9 cm M-MODE LV Diastolic Diameter MM 4.8 cm 4.2 - 5.9 / 3.9 - 5.3 cm LV Systolic Diameter MM 3.5 cm LV Ejection Fraction MM Teich 51.3 % IVS Diastolic Thickness MM 1.1 cm 0.6 - 1.0 / 0.6 - 0.9 cm IVS Systolic Thickness MM 1.3 cm LVPW Diastolic Thickness MM 0.9 cm 0.6 - 1.0 / 0.6 - 0.9 cm LVPW Systolic Thickness MM 1.5 cm RV Diastolic Diameter MM 1.7 cm Aortic Annulus Diameter 3.7 cm LA Ao Ratio MM 0.8 MV E Point Septal Separation 0.6 cm DOPPLER AV Peak Velocity 176.0 cm/s LVOT Peak Velocity 109.0 cm/s AV Area Cont Eq vti 2.0 cm squared AV Area Cont Eq pk 2.1 cm squared MV Area PHT 5.0 cm squared Mitral E to A Ratio 1.3 MV E' Velocity 53.0 cm/s Mitral E to MV E' Ratio 7.5 Mitral E to LV E' Lateral Ratio 7.6 Mitral E to LV E' Septal Ratio 7.5 TR Peak Velocity 220.0 cm/s TR Peak Gradient 19.4 mmHg TV Peak E Velocity 110.0 cm/s Right Atrial Pressure 3.0 mmHg Pulmonary Artery Systolic Pressu 22.4 mmHg PV Peak Velocity 103.0 cm/s FINDINGS Left Ventricle Normal left ventricular size, systolic function and wall thickness, with no regional wall motion abnormalities. Left ventricular ejection fraction is estimated at 60-65 %. Normal diastolic function. Right Ventricle Normal right ventricular size and systolic function. Right ventricular systolic pressure 22.4 mmHg. Right Atrium Normal right atrial size. Left Atrium Normal left atrial size. Mitral Valve Structurally normal mitral valve. No mitral valve stenosis. Mild mitral valve regurgitation. Aortic Valve Structurally normal trileaflet aortic valve. No aortic valve stenosis. Trace to mild aortic valve regurgitation. Tricuspid Valve Structurally normal tricuspid valve. No tricuspid valve stenosis. Trace tricuspid valve regurgitation. Pulmonic Valve Structurally normal pulmonic valve. No pulmonary valve stenosis. No pulmonary valve regurgitation. Pericardium No pericardial effusion. Aorta Normal size aortic root and proximal ascending aorta. IVC Inferior vena cava not visualized. CONCLUSIONS 1. Normal left ventricular size, systolic function and wall thickness, with no regional wall motion abnormalities. Left ventricular ejection fraction is estimated at 60-65 %. Normal diastolic function. 2. Trace to mild aortic valve regurgitation. 3. Mild mitral valve regurgitation. 4. No prior similar studies to compare. Fern Jean MD (Electronically Signed) Final Date: 26 Feb 2022 23:47 S
== END 2022-02-24 12:07 | disposition home or self-care (01) ==
LOC: RAD 12:10
PROVIDERS: PCP Nurse Practitioner Family; Visit Provider Nurse Practitioner Family
DX: R01.1 Cardiac murmur, unspecified (principal)
CPT/HCPCS: 93306

== ENCOUNTER 2022-03-14 13:35 | Emergency (ER) | payer MEDICAID, SELFPAY ==
[2022-03-14 13:41] VITALS: BP 163/87; PULSE 122; RESP 22; TEMP 37.6; O2SAT 96
--- NOTE | 2022-03-14 13:44 | XRR_ITS ---
PROCEDURE INFORMATION: Exam: XR Chest Exam date and time: 03/14/2022 1:59 PM Age: 31 years old Clinical indication: Dyspnea and shortness of breath; Patient HX: SOB, chest heaviness, pain between shoulder blades TECHNIQUE: Imaging protocol: XR of the chest. Views: 2 views. COMPARISON: CR XR chest 2V* [id number] 11/16/2021 8:45 AM FINDINGS: Lungs: Unremarkable. No consolidation. Pleural spaces: Unremarkable. No pleural effusion. No pneumothorax. Heart/Mediastinum: Unremarkable. No cardiomegaly. Bones/joints: Unremarkable. XR/XR chest 2V* [id number] IMPRESSION: No acute findings.
--- NOTE | 2022-03-14 13:44 | ECG_ITS ---
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 Measurements Intervals [place] Rate: 104 P: 48 NM: 202 QRS: 50 QRSD: 97 T: 45 QT: 314 QTc: 413 Interpretive Statements SINUS TACHYCARDIA Compared to ECG 06/14/2020 21:08:29 Sinus rhythm no longer present Electronically Signed On 03-15-2022 17:57:11 CDT by Santino Baird M.D. [id number]
[2022-03-14 14:49] VITALS: BP 163/107; PULSE 98; RESP 16; O2SAT 97
--- NOTE | 2022-03-14 14:50 | CTR_ITS ---
PROCEDURE INFORMATION: Exam: CTA Chest With Contrast Exam date and time: 03/14/2022 3:31 PM Age: 31 years old Clinical indication: Dyspnea; Additional info: Tachycardia/dyspnea TECHNIQUE: Imaging protocol: Computed tomographic angiography of the chest with contrast. 3D rendering (Not supervised by radiologist): MIP and/or 3D reconstructed images were created by the technologist. Radiation optimization: All CT scans at this facility use at least one of these dose optimization techniques: automated exposure control; mA and/or kV adjustment per patient size (includes targeted exams where dose is matched to clinical indication); or iterative reconstruction. Contrast material: OMNIPAQUE 300; Contrast volume: 95 ml; Contrast route: INTRAVENOUS (IV); COMPARISON: CR XR chest 2V* [id number] 03/14/2022 1:59 PM RADIATION DOSE METRICS: Total DLP (mGy-cm): 571.19 FINDINGS: Pulmonary arteries: No pulmonary embolus or aortic dissection. Aorta: See Pulmonary arteries finding. Lungs: Unremarkable. No consolidation. No masses. Pleural spaces: Unremarkable. No pneumothorax. No pleural effusion. Heart: Unremarkable. No cardiomegaly. No pericardial effusion. Lymph nodes: Shotty mediastinal adenopathy which is probably reactive. Gallbladder and bile ducts: Surgical clips in the gallbladder fossa consistent with cholecystectomy. Bones/joints: Unremarkable. No acute fracture. Soft tissues: Unremarkable. CT/CT angio chest PE protcl [id number] IMPRESSION: No pulmonary embolus or aortic dissection.
--- NOTE | 2022-03-14 14:51 | W.ED.CHESTPA ---
HPI - Chest Pain General: Chief Complaint: Chest Pain Stated Complaint: SOB Time Seen by Provider: 03/14/22 14:43 Source: patient Mode of arrival: ambulatory Limitations: no limitations History of Present Illness: 31-year-old female who presents to the emergency room with complaints of chest pain and shortness of breath. Chest pain is reproducible with palpation and worse with inspiration. She not having any radiation of the pain. No other symptoms no fever sweats chills no productive cough. MD complaint: chest pain Onset (ago): hour(s) Timing of current episode: constant Prior episodes: No Onset: during rest Pain location: substernal Pain radiation: none Severity: moderate Quality: aching and heaviness Relieving factors: nothing Exacerbating factors: exertion Associated symptoms: Reports dyspnea and sense of impending doom; Deny abdominal pain, diaphoresis, fever(s), leg edema, nausea, palpitations, syncope or vomiting Treatment prior to arrival: none Review of Systems Const: Denies: fever(s), chills, body aches, change in appetite or diaphoresis ENMT: Denies: throat pain, ear or mastoid pain, nasal discharge or nasal congestion Card: Reports: chest pain; Denies: palpitations, irregular heart rhythm, edema, swelling of feet/ankles or syncope Resp: Reports: dyspnea; Denies: productive cough or non-productive cough GI: Denies: abdominal pain, nausea or vomiting : Denies: flank pain, difficulty voiding, dysuria, urinary frequency or urinary urgency Skin/Breast: Denies: rash or pruritus Neuro: Denies: headache(s) Psych: Denies: anxiety PFSH ED PFSH: Medical History Chronic migraine w/o aura w/o status migrainosus, not intractable Surgical History History of bilateral tubal ligation History of section, low transverse History of hysterectomy (~05/15/19) Total vaginal hysterectomy converted to a total abdominal hysterectomy with Dr. Kelley Family History Father Heart disease Breast cancer Mother Heart disease Diabetes Hypercholesteremia Thyroid disease Hypertension Grandmother Breast cancer maternal Other NEWSOME (nonalcoholic steatohepatitis) Social History Smoking and tobacco status: former smoker Second hand smoke exposure: No Alcohol intake: current Alcohol intake frequency: few times a month Alcohol type: hard liquor History of recent travel: No Physical Exam Const: COMMON NORMALS: no acute distress GENERAL APPEARANCE: cooperative and comfortable ORIENTATION/CONSCIOUSNESS: Yes awake, Yes oriented to person, Yes oriented to place and Yes oriented to time HENMT: COMMON NORMALS: normocephalic and atraumatic HEAD & SCALP: normocephalic and atraumatic Eye: COMMON NORMALS: Equal, round and reactive pupils present, EOMs intact bilaterally, conjunctivae normal and no scleral icterus CONJUNCTIVA: Yes conjunctivae normal PUPIL: Yes Equal, round and reactive pupils present Neck/C-Spine: COMMON NORMALS: full ROM, no lymphadenopathy, supple and no JVD Lymph: LYMPHATIC: no lymphadenopathy noted and no lymphedema noted Chest: CHEST: Yes tenderness (Palpation of the upper sternum reproduces pain) Resp: COMMON NORMALS: normal respiratory effort, No retractions, No use of accessory muscles and clear to auscultation bilaterally AUSCULTATION: clear to auscultation bilaterally Cardio: COMMON NORMALS: no JVD, regular rate, regular rhythm and No murmurs present (Cardio) RATE: regular rate RHYTHM: regular rhythm GI: COMMON NORMALS: Soft to palpation and No hepatosplenomegaly present AUSCULTATION: Yes normoactive bowel sounds PALPATION: Yes Soft to palpation, No Tenderness to palpation present (GI), No Guarding due to palpation present (GI) and Yes No hepatosplenomegaly present Extremity: COMMON NORMALS: normal to inspection, capillary refill normal, no clubbing, cyanosis or edema, no calf tenderness and no pedal edema Neuro: SENSORIUM/ORIENTATION: Yes oriented to person, Yes oriented to place and Yes oriented to time Skin: COMMON NORMALS: no rashes or lesions noted GENERAL SKIN EXAM: no rashes or lesions noted Course Vital Signs: Vital signs: Vital Signs Temperature 99.6 F 03/14/22 13:41 Pulse Rate 96 03/14/22 15:10 Respiratory Rate 17 03/14/22 15:10 Blood Pressure 161/83 03/14/22 15:10 Pulse Oximetry 96 03/14/22 15:10 MDM - Chest Pain Medical Decision Making Chest pain reproducible with palpation labs reviewed Medical Records I reviewed the patient's medical records. Lab Data I reviewed the patient's lab results. : 03/14/22 13:59 03/14/22 13:59 Radiology Impressions Chest X-Ray 03/14/22 13:44 IMPRESSION: No acute findings. Chest CTA 03/14/22 14:50 IMPRESSION: No pulmonary embolus or aortic dissection. Laboratory Results WBC 13.5 10^3/uL (4.0-10.0) H 03/14/22 13:59 RBC 5.16 10^6/uL (4.1-5.3) 03/14/22 13:59 Hgb 14.3 g/dL (11.5-15.3) 03/14/22 13:59 Hct 45.0 % (37.0-47.0) 03/14/22 13:59 MCV 87.2 fl (81-99) 03/14/22 13:59 MCH 27.7 pg (28.0-34.0) L 03/14/22 13:59 MCHC 31.8 g/dL (30.0-36.0) 03/14/22 13:59 RDW 13.5 % (12.1-15.1) 03/14/22 13:59 Plt Count 197 10^3/cmm (130-400) 03/14/22 13:59 MPV 10.4 fL (7.4-10.4) 03/14/22 13:59 Neut % (Auto) 83.8 % 03/14/22 13:59 Lymph % (Auto) 9.1 % 03/14/22 13:59 [place] % (Auto) 5.8 % 03/14/22 13:59 Eos % (Auto) 0.6 % 03/14/22 13:59 Baso % (Auto) 0.3 % 03/14/22 13:59 Neut # (Auto) 11.35 10^3/uL (1.8-7.7) H 03/14/22 13:59 Lymph # (Auto) 1.2 10^3/uL (0.8-4.8) 03/14/22 13:59 [place] # (Auto) 0.8 10^3/uL (0.2-0.9) 03/14/22 13:59 Eos # (Auto) 0.1 10^3/uL (0.0-0.8) 03/14/22 13:59 Baso # (Auto) 0.0 10^3/uL (0.0-0.1) 03/14/22 13:59 Nucleated RBC % (auto) 0 % 03/14/22 13:59 Nucleated RBCs # 0.0 /100WBC 03/14/22 13:59 Specimen Type Arterial 03/14/22 15:50 Sample Site Radial, left 03/14/22 15:50 ABG pH 7.46 (7.35-7.45) H 03/14/22 15:50 ABG pCO2 35.2 mmHg (35-45) 03/14/22 15:50 ABG pO2 66.5 mmHg (80.0-100.0) L 03/14/22 15:50 ABG HCO3 24.9 mmol/L (22-26) 03/14/22 15:50 ABG O2 Saturation 94.7 03/14/22 15:50 ABG Base Excess 1.4 mmol/L (-2.0-2.0) 03/14/22 15:50 Jamin Test Pos 03/14/22 15:50 A-a O2 Gradient 4.9 mmHg (5-10) L 03/14/22 15:50 Hematocrit 41.9 % (37-47) 03/14/22 15:50 Hgb O2 Saturation 93.2 % (95-100) L 03/14/22 15:50 Carboxyhemoglobin 0.9 %THgb (0.4-20.1) 03/14/22 15:50 Methemoglobin 0.7 % (0.4-1.5) 03/14/22 15:50 Total Hemoglobin 13.7 g/dL (12-16) 03/14/22 15:50 Sodium 137.0 mmol/L (131-143) 03/14/22 15:50 Potassium 3.7 mmol/L (3.5-5.0) 03/14/22 15:50 Glucose 114.0 mg/dL (70-115) 03/14/22 15:50 Ionized Calcium 1.2 mmol/L (1.1-1.4) 03/14/22 15:50 O2 Delivery Device Room air 03/14/22 15:50 FiO2 21.0 % 03/14/22 15:50 Privacy Director ID Ed 03/14/22 15:50 Sodium 137 mmol/L (136-145) 03/14/22 13:59 Potassium 3.9 mmol/L (3.5-5.1) 03/14/22 13:59 Chloride 102 mmol/L (98-107) 03/14/22 13:59 Carbon Dioxide 24 mmol/L (22-29) 03/14/22 13:59 Anion Gap 14.9 (5-19) 03/14/22 13:59 BUN 9 mg/dL (6-20) 03/14/22 13:59 Creatinine 0.8 mg/dL (0.5-0.9) 03/14/22 13:59 GFR Calculation 83.7 mL/min (90-130) L 03/14/22 13:59 Glucose 108 mg/dL (65-115) 03/14/22 13:59 Calculated Osmolality 283 mOsm/kg (285-295) L 03/14/22 13:59 Calcium 9.3 mg/dL (8.5-10.5) 03/14/22 13:59 Total Bilirubin 0.6 mg/dL (0.15-1.2) 03/14/22 13:59 AST 17 U/L (0-32) 03/14/22 13:59 ALT 29 U/L (0-33) 03/14/22 13:59 Alkaline Phosphatase 115 IU/L (35-105) H 03/14/22 13:59 Total Protein 7.2 g/dL (6.6-8.7) 03/14/22 13:59 Albumin 4.1 g/dL (3.5-5.2) 03/14/22 13:59 Globulin 3.1 g/dL (1.3-4.6) 03/14/22 13:59 Discharge Plan Discharge Patient Disposition: Home Clinical Impression: Chest wall pain, Acid reflux Condition: Stable Prescriptions: New Protonix 40 mg tablet,delayed release (DR/EC) 40 mg PO DAILY Qty: 30 0RF No Action acetaminophen [Tylenol Extra Strength] 500 mg tablet 1,000 mg PO TID PRN (Reason: Pain) 0RF fluticasone propionate [Flonase Allergy Relief] 50 mcg/actuation spray,suspension 2 spray intranasal DAILY PRN (Reason: Allergy Symptoms) 0RF Rx Instructions: administer into each nostril diclofenac sodium 75 mg tablet,delayed release (DR/EC) 75 mg PO BID PRN (Reason: Pain) 0RF tizanidine 4 mg tablet 4 mg PO DAILY PRN (Reason: Muscle Spasm) 0RF ibuprofen 200 mg Tablet 800 mg PO Q8H PRN (Reason: Pain) 0RF Vitamin D3 50 mcg (2,000 unit) Capsule 50 mcg PO DAILY PRN (Reason: unknown) 0RF hydroxyzine HCl 25 mg tablet 50 mg PO BEDTIME PRN (Reason: sleep) 0RF Discharge Orders: Discharge ED (Routine); Ordered 03/14/22 Ordered By: Onel Serra Referrals: Xuan Pineda FNP [Primary Care Provider] - Discharge Diet: Usual diet Discharge Activity: Resume usual activity Patient Instructions: Opioid Safety Coding Level of Care Code ED Vending Mechanic for Tiffanie Fwkenneth Exam Comprehensive
[2022-03-14 14:59] LABS: Basophils % 0.3 %; Eosinophils # 0.1 10^3/uL (0.0-0.8); Eosinophils % 0.6 %; Hemoglobin 14.3 g/dL (11.5-15.3); Lymphocytes # 1.2 10^3/uL (0.8-4.8); Lymphocytes % 9.1 %; Mean Corpuscular HGB Conc 31.8 g/dL (30.0-36.0); Mean Corpuscular Hemoglobin 27.7 pg (28.0-34.0); Mean Corpuscular Volume 87.2 fl (81-99); Mean Platelet Volume 10.4 fL (7.4-10.4); Monocytes # 0.8 10^3/uL (0.2-0.9); Monocytes % 5.8 %; Neutrophils # 11.35 10^3/uL (1.8-7.7); Neutrophils % 83.8 %; Nucleated Red Blood Cells % 0 %; Platelet Count 197 10^3/cmm (130-400); Red Blood Count 5.16 10^6/uL (4.1-5.3); Red Cell Distribution Width 13.5 % (12.1-15.1); White Blood Count 13.5 10^3/uL (4.0-10.0)
[2022-03-14 15:10] VITALS: BP 161/83; PULSE 96; RESP 17; O2SAT 96
[2022-03-14 15:11] LABS: Alanine Aminotransferase 29 U/L (0-33); Albumin Level 4.1 g/dL (3.5-5.2); Alkaline Phosphatase 115 IU/L (35-105); Anion Gap 14.9 (5-19); Aspartate Amino Transferase 17 U/L (0-32); Blood Urea Nitrogen 9 mg/dL (6-20); Calcium 9.3 mg/dL (8.5-10.5); Carbon Dioxide 24 mmol/L (22-29); Chloride 102 mmol/L (98-107); Globulin 3.1 g/dL (1.3-4.6); Glomerular Filtration Rate 83.7 mL/min (90-130); Glucose 108 mg/dL (65-115); Osmolality Calculated 283 mOsm/kg (285-295); Potassium 3.9 mmol/L (3.5-5.1); Sodium 137 mmol/L (136-145); Total Bilirubin 0.6 mg/dL (0.15-1.2); Total Protein 7.2 g/dL (6.6-8.7)
[2022-03-14] MEDS: iohexol 300 mg/mL 100 mL Btl IV (15:32)
[2022-03-14 15:59] LABS: ABG PCO2 35.2 mmHg (35-45); ABG PH Result 7.46 (7.35-7.45); Alveolar-Arterial Oxygen Gradi 4.9 mmHg (5-10); Arterial Blood Gas Hematocrit 41.9 % (37-47); Base Excess ABG 1.4 mmol/L (-2.0-2.0); Blood Gas Allen Test Pos; Blood Gas Sample Type Arterial; Carboxyhemoglobin 0.9 %THgb (0.4-20.1); HCO3 ABG 24.9 mmol/L (22-26); HGB O2 Sat 93.2 % (95-100); Ionized Calcium Level - ABG 1.2 mmol/L (1.1-1.4); Methemoglobin 0.7 % (0.4-1.5); Oxygen Saturation ABG 94.7; PO2 ABG 66.5 mmHg (80.0-100.0); Potassium Level - ABG 3.7 mmol/L (3.5-5.0); Total Hemoglobin 13.7 g/dL (12-16)
[2022-03-14 16:01] LABS: Blood Gas Operator Identificat ED; Blood Gas Sample Site Radial, left; Oxygen Device ROOM AIR
[2022-03-14] MEDS: lidocaine 2% viscous 15 ML, aluminum-mag hydrox-simethicon 30 ML, sucralfate oral liq 1 GM PO (16:50)
== END 2022-03-14 17:13 | disposition home or self-care (01) ==
PROVIDERS: Emergency Provider Family Medicine; PCP Nurse Practitioner Family
DX: R07.89 Other chest pain (principal); K21.9 Gastro-esophageal reflux disease without esophagitis
CPT/HCPCS: 36600; 71046; 71275; 80051; 80053; 82330; 82805; 85025; 93005; 99285; Q9967

== ENCOUNTER → 2022-03-16 14:55 | Outpatient (BNVA) | payer MEDICAID, SELFPAY | PROVIDERS: PCP Nurse Practitioner Family; Visit Provider Internal Medicine Cardiovascular Disease | DX: R00.2 Palpitations (principal); R07.89 Other chest pain; F41.1 Generalized anxiety disorder; F33.1 Major depressive disorder, recurrent, moderate; E66.01 Morbid (severe) obesity due to excess calories; Z68.43 Body mass index [BMI] 50.0-59.9, adult; K21.9 Gastro-esophageal reflux disease without esophagitis; R00.0 Tachycardia, unspecified | CPT/HCPCS: 93242; 99204 ==

== ENCOUNTER 2022-05-31 08:35 | Outpatient (CLI) | payer MEDICAID, SELFPAY ==
[2022-05-31 10:29] LABS: Alanine Aminotransferase 43 U/L (0-33); Albumin Level 3.8 g/dL (3.5-5.2); Alkaline Phosphatase 110 U/L (35-105); Aspartate Amino Transferase 21 U/L (0-32); Blood Urea Nitrogen 6 mg/dL (6-20); Carbon Dioxide 28 mmol/L (22-29); Chloride 102 mmol/L (98-107); Chol HDL Ratio 4.36 mg/dL (0.0-4.40); Cholesterol 183 mg/dL (0-200); Free T4 Free Thyroxine 1.06 ng/dL (0.82-1.77); Globulin 3.1 g/dL (1.3-4.6); Glomerular Filtration Rate 97.6 mL/min (90-130); Glucose 95 mg/dL (65-115); HDL Cholesterol 42 mg/dL (60-100); LDL Cholesterol Calculated 109 mg/dL (50-129); Osmolality Calculated 283 mOsm/kg (285-295); Sodium 138 mmol/L (136-145); T3 Free 2.6 PG/ML (2.0-4.4); Thyroid Stimulating Hormone 1.35 uIU/mL (0.27-4.20); Total Bilirubin 0.5 mg/dL (0.15-1.2); Total Protein 6.9 g/dL (6.6-8.7); Triglycerides 158 mg/dL (0-150)
[2022-05-31 10:48] LABS: Estmated Average Glucose 126
== END 2022-05-31 08:36 | disposition home or self-care (01) ==
LOC: LAB 08:38
PROVIDERS: PCP Family Medicine; Visit Provider Family Medicine
DX: Z01.89 Encounter for other specified special examinations (principal)
CPT/HCPCS: 36415; 80053; 80061; 83036; 84439; 84443; 84481

== ENCOUNTER → 2022-06-24 18:34 | Outpatient (BNVA) | payer MEDICAID, SELFPAY | PROVIDERS: PCP Family Medicine; Visit Provider Registered Nurse Neonatal Intensive Care | DX: J02.9 Acute pharyngitis, unspecified (principal); H66.001 Acute suppurative otitis media without spontaneous rupture of ear drum, right ear | CPT/HCPCS: 87071; 87880 ==

== ENCOUNTER → 2023-02-07 10:39 | Outpatient (BNVA) | payer MEDICAID, SELFPAY | PROVIDERS: PCP Family Medicine; Visit Provider Orthopaedic Surgery | DX: M17.0 Bilateral primary osteoarthritis of knee (principal) | CPT/HCPCS: 73560; 73565 ==

== ENCOUNTER → 2023-04-25 09:00 | Outpatient (BNVA) | payer MEDICAID, SELFPAY | PROVIDERS: PCP Family Medicine; Visit Provider Obstetrics & Gynecology | DX: Z00.00 Encounter for general adult medical examination without abnormal findings (principal) | CPT/HCPCS: 83001; 84443 ==

== ENCOUNTER 2023-05-04 08:50 | Outpatient (CLI) | payer MEDICAID, SELFPAY ==
--- NOTE | 2023-05-04 09:11 | MM_ITS ---
WS: [id number] BILATERAL 3D TOMOSYNTHESIS DIGITAL DIAGNOSTIC MAMMOGRAPHY WITH CAD CLINICAL INFORMATION: N64.4 HISTORY: Palpable lump in the sternum larger than previous COMPARISON: December 03, 2021 TECHNIQUE: Bilateral CC, MLO, and ML views. FINDINGS: Scattered fibroglandular densities bilaterally. Palpable marker along the sternum eccentric to the RI GHT. Normal underlying parenchymal tissue. Ultrasound is pending. Breast parenchyma is otherwise unre markable and unchanged compared to previous. ULTRASOUND BREAST RIGHT TECHNIQUE: Ultrasound right breast focused area of concern. CLINICAL INFORMATION: N64.4 FINDINGS: Ultrasound chest wall area of palpable concern. Comparison prior ultrasound December 03, 2021. Normal underlying parenchymal tissue and fatty tissue. No cystic or solid lesions. No suspicious lesions to target for biopsy. Findings are benign. Recommend annual screening mammography age 40 MM/[place] [id number] IMPRESSION: BI-RADS: 2-Benign FOLLOW UP: Age 40
--- NOTE | 2023-05-04 10:03 | US_ITS ---
WS: [id number] BILATERAL 3D TOMOSYNTHESIS DIGITAL DIAGNOSTIC MAMMOGRAPHY WITH CAD CLINICAL INFORMATION: N64.4 HISTORY: Palpable lump in the sternum larger than previous COMPARISON: December 03, 2021 TECHNIQUE: Bilateral CC, MLO, and ML views. FINDINGS: Scattered fibroglandular densities bilaterally. Palpable marker along the sternum eccentric to the RI GHT. Normal underlying parenchymal tissue. Ultrasound is pending. Breast parenchyma is otherwise unre markable and unchanged compared to previous. ULTRASOUND BREAST RIGHT TECHNIQUE: Ultrasound right breast focused area of concern. CLINICAL INFORMATION: N64.4 FINDINGS: Ultrasound chest wall area of palpable concern. Comparison prior ultrasound December 03, 2021. Normal underlying parenchymal tissue and fatty tissue. No cystic or solid lesions. No suspicious lesions to target for biopsy. Findings are benign. Recommend annual screening mammography age 40 US/US breast RT limited* [id number] IMPRESSION: BI-RADS: 2-Benign FOLLOW UP: Age 40
--- NOTE | 2023-05-04 10:31 | XR_ITS ---
WS: [id number] EXAMINATION: XR chest 1V [id number] REASON FOR EXAM: N63.0 - Unspecified lump in unspecified breast COMPARISON: 03/14/2022 ORDER DATE: 05/04/2023 10:32 AM FINDINGS: The lungs are clear of infiltrate. The cardiac and mediastinal outlines are unremarkable. There ar e no significant pleural effusions . No significant abnormalities are noted in the spine or remainder of the bony thorax. XR/XR chest 1V [id number] IMPRESSION: NO ACUTE PULMONARY CHANGE.
== END 2023-05-04 08:51 | disposition home or self-care (01) ==
LOC: RAD 08:52 → MOBLMAM 08:55 → RAD 09:01
PROVIDERS: PCP Family Medicine; Visit Provider Obstetrics & Gynecology
DX: N64.4 Mastodynia (principal); R22.2 Localized swelling, mass and lump, trunk; N63.10 Unspecified lump in the right breast, unspecified quadrant
CPT/HCPCS: 71045; 76642; 77062; G0279

== ENCOUNTER → 2023-05-08 07:57 | Outpatient (BNVA) | payer MEDICAID, SELFPAY | PROVIDERS: PCP Family Medicine; Visit Provider Obstetrics & Gynecology | DX: R52 Pain, unspecified (principal) | CPT/HCPCS: 76830 ==

== ENCOUNTER → 2023-05-24 07:21 | Outpatient (BNVA) | payer MEDICAID, SELFPAY | PROVIDERS: PCP Family Medicine; Visit Provider Podiatrist Foot & Ankle Surgery | DX: S93.324A Dislocation of tarsometatarsal joint of right foot, initial encounter; X58.XXXA Exposure to other specified factors, initial encounter | CPT/HCPCS: 73630 ==

== ENCOUNTER 2023-05-24 10:29 | Outpatient (CLI) | payer MEDICAID, SELFPAY | END 2023-05-24 10:30 | disposition home or self-care (01) | LOC: SPT 10:29 | PROVIDERS: PCP Family Medicine; Visit Provider Podiatrist Foot & Ankle Surgery | DX: Z46.89 Encounter for fitting and adjustment of other specified devices (principal); S93.326D Dislocation of tarsometatarsal joint of unspecified foot, subsequent encounter; X58.XXXD Exposure to other specified factors, subsequent encounter | CPT/HCPCS: L4361 ==

== ENCOUNTER 2023-05-26 07:10 | Outpatient (CLI) | payer MEDICAID, SELFPAY ==
--- NOTE | 2023-05-26 07:30 | CTR_ITS ---
PROCEDURE INFORMATION: Exam: CT Right Lower Extremity Without Contrast, Foot Exam date and time: 05/26/2023 7:29 AM Age: 32 years old Clinical indication: Right; Patient HX: Pain RT foot x3 mon, heard a pop middle of RT foot anterior; Additional info: Evaluate lisfrac injury TECHNIQUE: Imaging protocol: CT of the right lower extremity without contrast was performed. Exam focused on the foot. Radiation optimization: All CT scans at this facility use at least one of these dose optimization techniques: automated exposure control; mA and/or kV adjustment per patient size (includes targeted exams where dose is matched to clinical indication); or iterative reconstruction. REPORTING DATA: Count of CT and Cardiac NM exams in prior 12 months: This patient has received 0 known CTs and 0 known cardiac nuclear medicine studies in the 12 months prior to the current study. COMPARISON: CR XR foot RT min 3V* [id number] 05/24/2023 7:25 AM RADIATION DOSE METRICS: Total DLP (mGy-cm): 123.23 FINDINGS: Bones/joints: No acute fracture or dislocation. Mild nonaggressive cystic change of the opposing distal medial cuneiform and 2nd metatarsal base, the latter also showing some mild sclerosis. Mild degenerative change at the 2nd tarsometatarsal joint. Joint spacing and alignment are otherwise maintained. Specifically, no abnormal widening at the tarsometatarsal joints. Type 2 os naviculare. Soft tissues: A 1.8 x 1.4 cm fluid density cyst emanating from between the proximal 1st and 2nd metatarsals/medial cuneiform in keeping with a ganglion. CT/CT foot RT wo con* [id number] IMPRESSION: 1. No acute findings or CT evidence of Lisfranc injury. Isolated ligamentous injury cannot be excluded. 2. Mild degenerative change at the 2nd TMT and C1-M2 joints. 3. 1.8 cm dorsal foot ganglion cyst appears to arise from the region of the 1st TMT joint and proximal 2nd metatarsal interface.
== END 2023-05-26 07:11 | disposition home or self-care (01) ==
LOC: RAD 07:11
PROVIDERS: PCP Family Medicine; Visit Provider Podiatrist Foot & Ankle Surgery
DX: S93.324A Dislocation of tarsometatarsal joint of right foot, initial encounter (principal); X58.XXXA Exposure to other specified factors, initial encounter; M67.471 Ganglion, right ankle and foot
CPT/HCPCS: 73700

== ENCOUNTER 2023-07-10 07:16 | Outpatient (CLI) | payer OTHER, SELFPAY ==
[2023-07-10 07:52] LABS: Basophils # 0.1 10^3/uL (0.0-0.1); Basophils % 1.4 %; Eosinophils # 0.1 10^3/uL (0.0-0.8); Hematocrit 41.8 % (36-47); Lymphocytes # 1.9 10^3/uL (0.8-4.8); Lymphocytes % 43.3 %; Mean Corpuscular HGB Conc 32.5 g/dL (30-55); Mean Corpuscular Hemoglobin 28.1 pg (27-33); Mean Corpuscular Volume 86.4 fl (85-98); Mean Platelet Volume 9.9 fL (7.4-10.4); Monocytes # 0.4 10^3/uL (0.2-0.9); Monocytes % 8.8 %; Neutrophils # 1.87 10^3/uL (1.8-7.7); Neutrophils % 43.3 %; Nucleated Red Blood Cells % 0 %; Platelet Count 224 10^3/cmm (157-399); Red Blood Count 4.84 10^6/uL (3.85-5.65); Red Cell Distribution Width 13.6 % (12.1-15.1); White Blood Count 4.32 10^3/uL (3.29-11.43)
[2023-07-10 08:10] LABS: Alanine Aminotransferase 12 U/L (0-33); Albumin Level 3.8 g/dL (3.5-5.2); Alkaline Phosphatase 83 U/L (35-105); Aspartate Amino Transferase 12 U/L (0-32); Blood Urea Nitrogen 13 mg/dL (6-20); Calcium 8.7 mg/dL (8.5-10.5); Carbon Dioxide 26 mmol/L (22-29); Chloride 106 mmol/L (98-107); Cholesterol 160 mg/dL (0-200); Globulin 2.9 g/dL (1.3-4.6); Glomerular Filtration Rate 83.1 mL/min (90-130); Glucose 128 mg/dL (65-115); HDL Cholesterol 40 mg/dL (60-100); LDL Cholesterol Calculated 91 mg/dL (50-129); LDL HDL Ratio 2.28 RATIO (0.00-3.22); Osmolality Calculated 292 mOsm/kg (285-295); Sodium 140 mmol/L (136-145); Total Bilirubin 0.4 mg/dL (0.15-1.2); Total Protein 6.7 g/dL (6.6-8.7); Triglycerides 146 mg/dL (0-150)
== END 2023-07-10 07:17 | disposition home or self-care (01) ==
PROVIDERS: PCP Family Medicine; Visit Provider Family Medicine
DX: G43.709 Chronic migraine without aura, not intractable, without status migrainosus (principal); F33.1 Major depressive disorder, recurrent, moderate; F41.1 Generalized anxiety disorder
CPT/HCPCS: 36415; 80053; 80061; 85025

== ENCOUNTER → 2023-10-20 11:20 | Outpatient (BNVA) | payer OTHER, SELFPAY | PROVIDERS: PCP Family Medicine; Visit Provider Physician Assistant | DX: M17.0 Bilateral primary osteoarthritis of knee; M23.305 Other meniscus derangements, unspecified medial meniscus, unspecified knee | CPT/HCPCS: 73560; 73565 ==

== ENCOUNTER 2023-11-05 10:25 | Emergency (ER) | payer OTHER, SELFPAY ==
[2023-11-05 10:27] VITALS: BP 154/94; PULSE 93; RESP 22; TEMP 36.8; O2SAT 98; BMI 59.5
--- NOTE | 2023-11-05 10:40 | XRR_ITS ---
PROCEDURE INFORMATION: Exam: XR Chest Exam date and time: 11/05/2023 11:24 AM Age: 33 years old Clinical indication: Cough and dyspnea; Patient HX: Cough; Congestion; Fever TECHNIQUE: Imaging protocol: Radiologic exam of the chest. Views: 1 view. Total images: 5 COMPARISON: CR XR chest 1V [id number] 05/04/2023 10:32 AM FINDINGS: Lungs: Unremarkable. No consolidation. Pleural spaces: Unremarkable. No pleural effusion. No pneumothorax. Heart/Mediastinum: Unremarkable. No cardiomegaly. Bones/joints: Unremarkable. XR/XR chest 1V portable [id number] IMPRESSION: No acute findings.
[2023-11-05 11:03] VITALS: BP 114/75; PULSE 91; RESP 20; O2SAT 98
--- NOTE | 2023-11-05 11:33 | W.ED.SOB ---
HPI - SOB/Dyspnea General: Chief Complaint: Shortness of Breath/Dyspnea Stated Complaint: Cough/ SOB Time Seen by Provider: 11/05/23 10:27 History of Present Illness: HPI Narrative: Patient presents to the ER with complaints of shortness of breath and pain with inspiration. Patient states she really had a sinus infection and thinks is travel into her lungs. Patient has a dry cough and runny nose. Patient appears winded with speaking and exertion but oxygen saturations 98% on room air and respirations are even and unlabored. 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 Patient normally does not have any breathing problems, is not on oxygen or breathing medicines. Review of Systems General: Reports: 10 or more systems reviewed and unremarkable except in HPI and below PFSH ED PFSH: Medical History Ganglion cyst of wrist Fibromyalgia Chronic migraine w/o aura w/o status migrainosus, not intractable Surgical History History of cholecystectomy (~09/2015) laparoscopic H/O dilation and curettage S/P cholecystectomy S/P dilatation and curettage History of section, low transverse History of bilateral tubal ligation History of hysterectomy (~05/15/19) Total vaginal hysterectomy converted to a total abdominal hysterectomy with Dr. Kelley Family History Father Heart disease Breast cancer Mother Heart disease Diabetes Hypercholesteremia Thyroid disease Hypertension Grandmother Breast cancer maternal Other NEWSOME (nonalcoholic steatohepatitis) Social History Smoking and tobacco/nicotine status: never used tobacco/nicotine Second hand smoke exposure: No Alcohol intake: current Alcohol intake frequency: few times a month Alcohol type: hard liquor Substance/Drug Use: never Female Reproductive History: Para: 2 Spontaneous abortions: No Physical Exam Const: COMMON NORMALS: no acute distress, average body habitus, patient oriented x3, no limitations, healthy appearing, alert and well nourished HENMT: COMMON NORMALS: normocephalic, hearing grossly normal bilaterally, external ears normal, EAC's normal, Normal external nose present, moist oral mucous membranes and oropharynx normal HEAD & SCALP: normocephalic NOSE: Normal external nose present EXTERNAL EAR: Yes external ears normal EXTERNAL AUDITORY CANAL: EAC's normal Neck/C-Spine: COMMON NORMALS: no JVD Chest: COMMONS NORMALS: normal inspection of the chest and normal palpation of entire chest wall Resp: COMMON NORMALS: normal respiratory effort, No retractions, No use of accessory muscles and clear to auscultation bilaterally AUSCULTATION: clear to auscultation bilaterally Cardio: COMMON NORMALS: no JVD, regular rate, regular rhythm, S1 normal heart sound present, S2 normal heart sound present, No gallops present (Cardio), No clicks present (Cardio) and No murmurs present (Cardio) RATE: regular rate RHYTHM: regular rhythm HEART SOUNDS: S1 normal heart sound present and S2 normal heart sound present Neuro: COMMON NORMALS: patient oriented x3 SENSORIUM/ORIENTATION: Yes alert Course Vital Signs: Vital signs: Vital Signs Temperature 98.3 F 11/05/23 10:27 Pulse Rate 91 11/05/23 11:03 Respiratory Rate 20 H 11/05/23 11:03 Blood Pressure 114/75 11/05/23 11:03 Pulse Oximetry 98 11/05/23 11:03 Oxygen Delivery Me thod Room Air 11/05/23 11:03 MDM - SOB/Dyspnea Medical Decision Making Patient had lab work that included CBC CMP, influenza, COVID, chest x-ray, all which benign showed no acute findings. Is felt patient probably has a viral upper respiratory infection. Patient be discharged home to follow-up with her PCP. Differential Diagnosis Unlikely acute exacerbation of chronic obstructive airways disease, congestive heart failure, community acquired pneumonia, asthma with exacerbation or pulmonary embolism Medical Records I reviewed the patient's medical records. Lab Data I reviewed the patient's lab results. 11/05/23 11:24 11/05/23 11:24 Labs/Radiology: Radiology Impressions Chest X-Ray 11/05/23 10:40 IMPRESSION: No acute findings. Laboratory Results WBC 10.95 10^3/uL (3.29-11.43) 11/05/23 11:24 RBC 4.79 10^6/uL (3.85-5.65) 11/05/23 11:24 Hgb 13.10 g/dL (11.27-16.99) 11/05/23 11:24 Hct 41.8 % (36-47) 11/05/23 11:24 MCV 87.3 fl (85-98) 11/05/23 11:24 MCH 27.3 pg (27-33) 11/05/23 11:24 MCHC 31.3 g/dL (30-55) 11/05/23 11:24 RDW 14.0 % (12.1-15.1) 11/05/23 11:24 Plt Count 210 10^3/cmm (157-399) 11/05/23 11:24 MPV 9.5 fL (7.4-10.4) 11/05/23 11:24 Neut % (Auto) 82.6 % 11/05/23 11:24 Lymph % (Auto) 11.0 % 11/05/23 11:24 Irion % (Auto) 4.8 % 11/05/23 11:24 Eos % (Auto) 0.6 % 11/05/23 11:24 Baso % (Auto) 0.5 % 11/05/23 11:24 Neut # (Auto) 9.04 10^3/uL (1.8-7.7) H 11/05/23 11:24 Lymph # (Auto) 1.2 10^3/uL (0.8-4.8) 11/05/23 11:24 Irion # (Auto) 0.5 10^3/uL (0.2-0.9) 11/05/23 11:24 Eos # (Auto) 0.1 10^3/uL (0.0-0.8) 11/05/23 11:24 Baso # (Auto) 0.1 10^3/uL (0.0-0.1) 11/05/23 11:24 Nucleated RBC % (auto) 0 % 11/05/23 11:24 Nucleated RBCs # 0.0 /100WBC 11/05/23 11:24 Sodium 136 mmol/L (136-145) 11/05/23 11:24 Potassium 3.9 mmol/L (3.5-5.1) 11/05/23 11:24 Chloride 104 mmol/L (98-107) 11/05/23 11:24 Carbon Dioxide 24 mmol/L (22-29) 11/05/23 11:24 Anion Gap 11.9 (5-19) 11/05/23 11:24 BUN 7 mg/dL (6-20) 11/05/23 11:24 Creatinine 0.8 mg/dL (0.5-0.9) 11/05/23 11:24 GFR Calculation 82.6 mL/min (90-130) L 11/05/23 11:24 Glucose 133 mg/dL (65-115) H 11/05/23 11:24 Calculated Osmolality 282 mOsm/kg (285-295) L 11/05/23 11:24 Calcium 9.0 mg/dL (8.5-10.5) 11/05/23 11:24 Total Bilirubin 0.6 mg/dL (0.15-1.2) 11/05/23 11:24 AST 16 U/L (0-32) 11/05/23 11:24 ALT 24 U/L (0-33) 11/05/23 11:24 Alkaline Phosphatase 117 U/L (35-105) H 11/05/23 11:24 Total Protein 6.8 g/dL (6.6-8.7) 11/05/23 11:24 Albumin 3.7 g/dL (3.5-5.2) 11/05/23 11:24 Globulin 3.1 g/dL (1.3-4.6) 11/05/23 11:24 Influenza Type A Ag negative (Negative) 11/05/23 10:46 Influenza Type B Ag negative (Negative) 11/05/23 10:46 SARS-CoV-2 Ag (Rapid) negative (Negative) 11/05/23 10:46 All radiology interpretation(s) finalized by discharge Discharge Plan Discharge Patient Disposition: Home Clinical Impression: Viral URI with cough Condition: Stable Prescriptions: No Action acetaminophen [Tylenol Extra Strength] 500 mg tablet 1,000 mg PO TID PRN (Reason: Pain) (DME) [employer] (medial) See Rx Instructions .Route .MEDSUPPLY Qty: 1 0RF Rx Instructions: As directed metoprolol succinate 25 mg tablet extended release 24 hr 25 mg PO DAILY Qty: 90 3RF ibuprofen 200 mg Tablet 600 mg PO Q6H PRN (Reason: Pain) Discharge Orders: Discharge ED (Routine); Ordered 11/05/23 Ordered By: Klever Olivera Referrals: Amrik Curtis DO [Primary Care Provider] - 1 week Patient Instructions: Upper Respiratory Infection - Adult Activity Restrictions/Additional Instructions: Your lab work come back negative for influenza, COVID, pneumonia, it is thought you probably have a viral upper respiratory infection. There is no definitive treatment for these and they must run your course. Please feel free to follow-up with your family practice physician within the next 7 days as needed. Coding Level of Care Code ED Supervisor Filling [employer] Packing for Tiffanie Bhatt
[2023-11-05 11:43] LABS: Basophils # 0.1 10^3/uL (0.0-0.1); Basophils % 0.5 %; Eosinophils # 0.1 10^3/uL (0.0-0.8); Eosinophils % 0.6 %; Hematocrit 41.8 % (36-47); Lymphocytes # 1.2 10^3/uL (0.8-4.8); Mean Corpuscular HGB Conc 31.3 g/dL (30-55); Mean Corpuscular Hemoglobin 27.3 pg (27-33); Mean Corpuscular Volume 87.3 fl (85-98); Mean Platelet Volume 9.5 fL (7.4-10.4); Monocytes # 0.5 10^3/uL (0.2-0.9); Monocytes % 4.8 %; Neutrophils # 9.04 10^3/uL (1.8-7.7); Neutrophils % 82.6 %; Nucleated Red Blood Cells % 0 %; Platelet Count 210 10^3/cmm (157-399); Red Blood Count 4.79 10^6/uL (3.85-5.65); White Blood Count 10.95 10^3/uL (3.29-11.43)
[2023-11-05 11:44] LABS: Influenza A by IFA negative (Negative); Influenza B by IFA negative (Negative); SARS Covid-2 Antigen negative (Negative)
[2023-11-05 12:02] LABS: Alanine Aminotransferase 24 U/L (0-33); Albumin Level 3.7 g/dL (3.5-5.2); Alkaline Phosphatase 117 U/L (35-105); Anion Gap 11.9 (5-19); Aspartate Amino Transferase 16 U/L (0-32); Blood Urea Nitrogen 7 mg/dL (6-20); Carbon Dioxide 24 mmol/L (22-29); Chloride 104 mmol/L (98-107); Globulin 3.1 g/dL (1.3-4.6); Glomerular Filtration Rate 82.6 mL/min (90-130); Glucose 133 mg/dL (65-115); Osmolality Calculated 282 mOsm/kg (285-295); Potassium 3.9 mmol/L (3.5-5.1); Sodium 136 mmol/L (136-145); Total Bilirubin 0.6 mg/dL (0.15-1.2); Total Protein 6.8 g/dL (6.6-8.7)
== END 2023-11-05 12:37 | disposition home or self-care (01) ==
PROVIDERS: Emergency Provider Emergency Medicine; PCP Family Medicine
DX: J06.9 Acute upper respiratory infection, unspecified (principal); Z11.52 Encounter for screening for COVID-19
CPT/HCPCS: 36415; 71045; 80053; 85025; 87426; 87804; 99284

== ENCOUNTER 2023-11-16 07:02 | Outpatient (CLI) | payer OTHER, SELFPAY ==
--- NOTE | 2023-11-16 07:15 | MR_ITS ---
WS: [id number] MRI LEFT KNEE HISTORY: Left knee pain/injury COMPARISON: Radiograph 10/20/2023 Anterior cruciate ligament: Intact. Posterior cruciate ligament: Intact. There is fluid surrounding adjacent to the PCL but the PCL is in tact. Medial collateral ligament: Increased fluid and increased T2 signal within the central MCL consistent with a mild to moderate sprain. No full-thickness tear is identified. There is partial displacement from the joint by an extruded disc and osteophyte. Posterior lateral corner structures: Intact. Medial menisci: Abnormal signal in the posterior horn. The signal is most consistent with intrasubsta nce degeneration and no full-thickness tear. Slightly greater increased signal in the peripheral thir d of the meniscus and there is fraying along the superior articular surface. Lateral meniscus: Intact. Normal signal, size and shape. Extensor mechanism: Distal quadriceps tendon and patellar tendons are intact. Fluid and soft tissue: Very small joint effusion. No Thomas's cyst. Subcutaneous edema. Osseous and articular structures: Patellofemoral compartment: Very minimal joint space narrowing. Mild chondromalacia along the patella r eminence. Medial compartment: Moderate narrowing of the medial compartment. Partially extruded meniscus from th e joint line. Diffuse mild loss of cartilage. Small amount of marrow edema along the tibial plateau a nd femoral condyle. Lateral compartment: Mild thinning narrowing. IMPRESSION: 1. Mild MCL sprain. 2. Small suprapatellar joint effusion and surrounding subcutaneous edema. 3. PCL is intact but there is fluid surrounding the PCL. 4. Intrasubstance degeneration in the posterior horn of medial meniscus with fraying along the artic ular surface. No tear is identified. 5. Partially extruded meniscus from the medial joint line. 6. Mild chondromalacia at the patellar eminence. 7. Moderate narrowing of the medial compartment with internal derangement.
== END 2023-11-16 07:03 | disposition home or self-care (01) ==
LOC: RAD 07:03
PROVIDERS: PCP Family Medicine; Visit Provider Physician Assistant
DX: M17.0 Bilateral primary osteoarthritis of knee (principal); M25.562 Pain in left knee; G89.29 Other chronic pain
CPT/HCPCS: 73721

== ENCOUNTER → 2024-02-13 09:58 | Outpatient (BNVA) | payer OTHER, SELFPAY | PROVIDERS: PCP Family Medicine; Visit Provider Family Medicine | DX: R79.89 Other specified abnormal findings of blood chemistry (principal); F41.1 Generalized anxiety disorder; R73.03 Prediabetes; E66.01 Morbid (severe) obesity due to excess calories; R53.83 Other fatigue; E55.9 Vitamin D deficiency, unspecified | CPT/HCPCS: 80053; 80061; 82306; 82607; 82672; 83001; 83036; 84144; 84443; 85025 ==

== ENCOUNTER 2024-03-06 22:21 | Emergency (ER) | payer OTHER, SELFPAY ==
[2024-03-06 22:28] VITALS: BP 171/90; PULSE 71; RESP 18; O2SAT 99
--- NOTE | 2024-03-06 22:28 | W.ED.BACK ---
HPI - Back Pain/Injury General: Chief Complaint: Back Pain/Injury Stated Complaint: Back Pain Time Seen by Provider: 03/06/24 22:24 History of Present Illness: 33-year-old female with morbid obesity and chronic back issues who presents to the emergency room with an acute exacerbation of her back pain. She said couple of days ago she was moving and felt a pop and since then she has had low back pain radiating into her right leg. She says it severe the pain almost keeps her from being able to walk. She is still ambulatory. No saddle numbness, no urinary retention or incontinence, no focal motor deficit, no sensory deficit. no recent fever. no cough. no shortness of breath. no chest pain. no abdominal pain. no nausea or vomiting. no dysuria. no altered mental status. no edema. Review of Systems Narrative: Constitutional symptoms: Negative except as documented in HPI. Skin symptoms: Negative except as documented in HPI. Eye symptoms: Negative except as documented in HPI. ENMT symptoms: Negative except as documented in HPI. Respiratory symptoms: Negative except as documented in HPI. Cardiovascular symptoms: Negative except as documented in HPI. Gastrointestinal symptoms: Negative except as documented in HPI. Genitourinary symptoms: Negative except as documented in HPI. Musculoskeletal symptoms: Negative except as documented in HPI. Neurologic symptoms: Negative except as documented in HPI. Psychiatric symptoms: Negative except as documented in HPI. Endocrine symptoms: Negative except as documented in HPI. PFSH ED PFSH: Medical History Ganglion cyst of wrist Fibromyalgia Chronic migraine w/o aura w/o status migrainosus, not intractable Surgical History History of cholecystectomy (~09/2015) laparoscopic H/O dilation and curettage S/P cholecystectomy S/P dilatation and curettage History of section, low transverse History of bilateral tubal ligation History of hysterectomy (~05/15/19) Total vaginal hysterectomy converted to a total abdominal hysterectomy with Dr. Kelley Family History Father Heart disease Breast cancer Mother Heart disease Diabetes Hypercholesteremia Thyroid disease Hypertension Grandmother Breast cancer maternal Other NEWSOME (nonalcoholic steatohepatitis) Social History Smoking and tobacco/nicotine status: never used tobacco/nicotine Second hand smoke exposure: No Alcohol intake: current Alcohol intake frequency: few times a month Alcohol type: hard liquor Substance/Drug Use: never Female Reproductive History: Para: 2 Spontaneous abortions: No Physical Exam Narrative: EXAM NARRATIVE: General: Alert, no acute distress. Head: Normocephalic Neck: Trachea midline Eye: Extraocular movements are intact. Ears, nose, mouth and throat: Oral mucosa moist Respiratory: Respirations are non-labored Musculoskeletal: Normal ROM Back: no step off, no focal tenderness, some paraspinal muscle tenderness Neurological: Alert and oriented to person, place, time, and situation, No focal neurological deficit observed. Psychiatric: Cooperative, appropriate mood & affect. Course Vital Signs: Vital signs: Vital Signs Pulse Rate 71 03/06/24 22:28 Respiratory Rate 18 03/06/24 22:28 Blood Pressure 171/90 03/06/24 22:28 Pulse Oximetry 99 03/06/24 22:28 Oxygen Delivery Me thod Room Air 03/06/24 22:28 MDM - Back Pain/Injury Medical Decision Making Assessment and plan: Sciatica Low back pain ? IV Solu-Medrol, IV Toradol, IV Dilaudid and IV Zofran in the emergency room. - Discharged home - Discussed plan with patient. Answered any questions. - Evaluation and treatment of this problem were appropriate in the emergency setting. No radiology studies performed this visit Discharge Plan Discharge Patient Disposition: Home Clinical Impression: Lumbar radiculopathy Strain of lumbar region Qualifiers: Encounter type: initial encounter Qualified Code(s): S39.012A - Strain of muscle, fascia and tendon of lower back, initial encounter Sciatica Qualifiers: Laterality: right Qualified Code(s): M54.31 - Sciatica, right side Condition: Stable Prescriptions: New hydrocodone-acetaminophen 5-325 mg tablet 1 tab PO Q6H PRN (Reason: pain) Qty: 20 0RF diclofenac sodium 50 mg tablet,delayed release (DR/EC) 50 mg PO Q12H Qty: 20 0RF polyethylene glycol 3350 [Miralax] 17 gram/dose powder 17 g PO DAILY Qty: 510 0RF Rx Instructions: Take 1 scoop daily while taking pain medications. prednisone 20 mg tablet 60 mg PO DAILY Qty: 20 0RF Rx Instructions: 3 tabs (60 mg) x 3 days. 2 tabs (40 mg) x 3 days. 1 tab (20 mg) x 3 days. 1/2 tab (10 mg) x 4 days No Action acetaminophen [Tylenol Extra Strength] 500 mg tablet 1,000 mg PO TID PRN (Reason: Pain) (DME) [employer] (medial) See Rx Instructions .Route .MEDSUPPLY Qty: 1 0RF Rx Instructions: As directed metoprolol succinate 25 mg tablet extended release 24 hr 25 mg PO DAILY Qty: 90 3RF diclofenac sodium [Voltaren Arthritis Pain] 1 % gel 4 g topical QID Qty: 100 1RF Rx Instructions: apply to single knee, ankle, foot; for foot includes sole/toes/top of foot meloxicam 15 mg tablet 15 mg PO DAILY PRN ibuprofen 200 mg Tablet 600 mg PO Q6H PRN (Reason: Pain) Discharge Orders: Discharge ED (Routine); Ordered 03/06/24 Ordered By: Karrie Kaplan Referrals: Amrik Curtis DO [Primary Care Provider] - 4-7 days Discharge Diet: Usual diet Discharge Activity: Increase activity as tolerated Patient Instructions: Sciatica (ED), Opioid Safety, Pain Management Activity Restrictions/Additional Instructions: Thank you for choosing [facility] for your healthcare needs today. Please realize this is an emergency room and that we are providing you with a medical screening exam and this may not be complete and all inclusive of all the testing and or work up that you may need to determine your ailment or severity of your illness. You have been screened and evaluated and felt safe for discharge. Health conditions do change or evolve sometimes and as such it is important that you follow up with your Primary Doctor to be re checked, 3-5 days is a general good time frame for follow up. You are always welcome to return to the ED for re assessment if your symptoms are worsening or you have new concerns Coding Level of Care Code ED Industrial Electrical Technician for Tiffanie Bhatt
[2024-03-06 22:35] VITALS: BP 152/109; PULSE 74; RESP 18; O2SAT 97
[2024-03-06] MEDS: ondansetron 2 mg/ML SDV 2 mL 4 MG IVP (22:42)
[2024-03-06] MEDS: ketorolac 30 mg/mL INJ IVP (22:46)
[2024-03-06 22:47] VITALS: RESP 20; O2SAT 99
[2024-03-06] MEDS: HYDROmorphone 1 mg/mL INJ 1 mL IVP (22:47)
[2024-03-06] MEDS: methylPREDNISolone sod succ 125 mg/2 mL INJ IVP (22:51)
[2024-03-06] MEDS: promethazine 25 mg/mL SDV 1 mL IM (23:34)
[2024-03-06] MEDS: LORazepam 2 mg/mL INJ 10 mL MDV 1 MG IVP (23:37)
[2024-03-06] MEDS: orphenadrine 30 mg/mL Inj 2 mL 60 MG IVP (23:39)
[2024-03-07 00:21] VITALS: BP 124/82; PULSE 62; RESP 18; O2SAT 94
== END 2024-03-07 00:15 | disposition home or self-care (01) ==
PROVIDERS: Emergency Provider Emergency Medicine; PCP Family Medicine
DX: S39.012A Strain of muscle, fascia and tendon of lower back, initial encounter (principal); M54.16 Radiculopathy, lumbar region; M54.31 Sciatica, right side; X50.9XXA Other and unspecified overexertion or strenuous movements or postures, initial encounter; E66.01 Morbid (severe) obesity due to excess calories; Z68.43 Body mass index [BMI] 50.0-59.9, adult
CPT/HCPCS: 96372; 96374; 96375; 99284; J1170; J1885; J2060; J2360; J2405; J2550; J2919

== ENCOUNTER 2024-03-11 15:19 | Emergency (ER) | payer OTHER, SELFPAY ==
[2024-03-11 15:21] VITALS: BP 163/98; PULSE 67; RESP 18; TEMP 36.6; O2SAT 98
[2024-03-11 16:09] LABS: Basophils # 0.1 10^3/uL (0.0-0.1); Eosinophils # 0.2 10^3/uL (0.0-0.8); Eosinophils % 2.2 %; Hematocrit 44.2 % (36-47); Lymphocytes % 28.5 %; Mean Corpuscular Hemoglobin 27.5 pg (27-33); Mean Corpuscular Volume 88.8 fl (85-98); Mean Platelet Volume 9.9 fL (7.4-10.4); Monocytes # 0.6 10^3/uL (0.2-0.9); Monocytes % 9.4 %; Neutrophils % 58.5 %; Nucleated Red Blood Cells % 0 %; Platelet Count 247 10^3/cmm (157-399); Red Blood Count 4.98 10^6/uL (3.85-5.65); Red Cell Distribution Width 14.5 % (12.1-15.1); White Blood Count 6.84 10^3/uL (3.29-11.43)
[2024-03-11 16:23] LABS: HCG, Serum Qual Negative (Negative)
[2024-03-11 16:29] LABS: Alanine Aminotransferase 31 U/L (0-33); Albumin Level 3.5 g/dL (3.5-5.2); Alkaline Phosphatase 92 U/L (35-105); Anion Gap 13.8 (5-19); Aspartate Amino Transferase 17 U/L (0-32); Blood Urea Nitrogen 12 mg/dL (6-20); Calcium 9.2 mg/dL (8.5-10.5); Carbon Dioxide 25 mmol/L (22-29); Chloride 103 mmol/L (98-107); Creatinine Clr Calc Pharmacy 149.9176; Globulin 2.8 g/dL (1.3-4.6); Glomerular Filtration Rate 72.1 mL/min (90-130); Glucose 92 mg/dL (65-115); Lipase 52 U/L (13-60); Osmolality Calculated 285 mOsm/kg (285-295); Potassium 3.8 mmol/L (3.5-5.1); Sodium 138 mmol/L (136-145); Total Bilirubin 0.4 mg/dL (0.15-1.2); Total Protein 6.3 g/dL (6.6-8.7)
[2024-03-11 17:58] LABS: Add Urine Culture? No; Add Urine Microscopic? YES; Bacteria Urine 1+ /hpf; Bilirubin Urine Neg (Negative); Blood Urine Neg (Negative); Glucose Urine UA Norm (Normal); Ketones Urine Negative (Negative); Leukocyte Esterase Urine Negative (Negative); Nitrate Urine Negative (Negative); Protein Urine Neg (Negative); Urine Appearance Slightly Cloudy (CLEAR); Urine Color Yellow (Yellow); Urobilinogen Urine Norm (Negative); pH Urine 5 (5-7)
--- NOTE | 2024-03-11 18:02 | CTR_ITS ---
PROCEDURE INFORMATION: Exam: CT Abdomen And Pelvis With Contrast Exam date and time: 03/11/2024 6:12 PM Age: 33 years old Clinical indication: Abdominal pain; Generalized; Prior surgery; Surgery date: 6+ months; Surgery type: Gb, csection, hyst; Additional info: Epigastric pain TECHNIQUE: Imaging protocol: Computed tomography of the abdomen and pelvis with contrast. Radiation optimization: All CT scans at this facility use at least one of these dose optimization techniques: automated exposure control; mA and/or kV adjustment per patient size (includes targeted exams where dose is matched to clinical indication); or iterative reconstruction. Contrast material: OMNI 350; Contrast volume: 100 ml; Contrast route: INTRAVENOUS (IV); COMPARISON: CT abdomen pelvis w con* [id number] 04/18/2018 12:36 PM RADIATION DOSE METRICS: Total DLP (mGy-cm): 1388 FINDINGS: Lungs: Subsegmental bibasilar atelectasis. The visualized lung bases are otherwise grossly clear. Diaphragm: No evidence of diaphragmatic defect. Liver: No focal hepatic lesion. Gallbladder and bile ducts: Status post cholecystectomy. No evidence of intrahepatic or extrahepatic biliary dilatation. Pancreas: Unremarkable. Spleen: Unremarkable. Adrenal glands: Unremarkable. Kidneys and ureters: No renal parenchymal abnormality. No hydronephrosis or ureteral stone. Stomach and bowel: Mild wall thickening and perienteric haziness of the duodenum raising the question of duodenitis versus pancreatitis involving the pancreaticoduodenal groove. No evidence of bowel obstruction. Few scattered colonic diverticula without evidence of acute diverticulitis. Appendix: The appendix is not visualized, however there are no findings to suggest appendicitis. Intraperitoneal space: No evidence of free air or fluid collection. Vasculature: No aneurysmal dilatation or dissection of the abdominal aorta. The celiac trunk, SMA and JUDY are grossly patent. No evidence of IVC thrombus. The portal vein, SMV and splenic veins are grossly patent. Lymph nodes: No adenopathy. Urinary bladder: Excreted contrast within the bladder. Otherwise grossly unremarkable. Reproductive: Prior hysterectomy. Bones/joints: No evidence of acute fracture or aggressive osseous lesion. Soft tissues: No evidence of fluid collection or hematoma in the superficial soft tissues. CT/CT abdomen pelvis w con* [id number] IMPRESSION: 1. Findings raising the question of duodenitis versus pancreatitis involving the pancreaticoduodenal groove. Consider correlation with serum lipase.
--- NOTE | 2024-03-11 18:04 | W.ED.ABDPA2 ---
Documented by User: PASTOR Lemon 03/11/24 19:24 HPI - Abdominal Pain General: Chief Complaint: Abdominal Pain Stated Complaint: abd pain Time Seen by Provider: 03/11/24 17:55 Source: patient Mode of arrival: ambulatory Limitations: no limitations History of Present Illness: Patient is a 33-year-old female presenting to the emergency department complaining of epigastric abdominal pain since Monday. She was seen by her primary care Dr. Huntley, and was sent over for further evaluation. She notes that she initially thought the pain was from starting prednisone for chronic back pain, however when she stopped taking this the pain has persisted and she states her current episode of pain has been 6 hours of constant severe 10/10 pain. She does note history of cholecystectomy and denies any history of pancreatitis. She states that she is unable to compare her pain to eating, as she has not been eating anything. She does note that it is worse with lying flat, and states that standing seems to relieve her pain though it is mainly from walking around and keeping her mind off of it. She is noting some nausea and vomiting, however is denying any changes in bowel or bladder, chest pain, breathing difficulties, headache, or other symptoms at this time. She does note a chronic longstanding history of taking anti-inflammatories for joint pains, denies any significant history of alcohol use. She denies history of known stomach ulcers or acid reflux. She does note that she has been eating Tums like crazy and has gotten minimal to no relief. On arrival to the ED she is afebrile and labs unremarkable. She does appear acutely in distress from the pain. MD elicited complaint: abdominal pain Pertinent past history: none Onset (ago): day(s) Pain Consistency: constant Location: Epigastric Severity: severe Pain scale (0-10): 10 Quality: sharp Radiation: LUQ and RUQ Associated Symptoms: Reports nausea and vomiting; Denies bloating, change in stool character, chills, constipation, diarrhea, dysuria, fever(s) and hematochezia Treatments prior to arrival: antacids Review of Systems General: Reports: 10 or more systems reviewed and unremarkable except in HPI and below Const: Denies: fever(s), chills, change in appetite, change in weight or diaphoresis ENMT: Denies: throat pain or hoarseness Card: Denies: chest pain, palpitations or lightheadedness Resp: Denies: dyspnea, productive cough or wheezing GI: Reports: abdominal pain, nausea and vomiting; Denies: diarrhea, constipation, bloating, change in stool character or hematochezia : Denies: flank pain, difficulty voiding, dysuria, urinary frequency or urinary urgency Musc: Reports: back pain (Chronic); Denies: neck pain Skin/Breast: Denies: rash or new lesions Neuro: Denies: headache(s) or dizziness PFSH ED PFSH: Medical History Ganglion cyst of wrist Fibromyalgia Chronic migraine w/o aura w/o status migrainosus, not intractable Surgical History History of cholecystectomy (~09/2015) laparoscopic H/O dilation and curettage S/P cholecystectomy S/P dilatation and curettage History of section, low transverse History of bilateral tubal ligation History of hysterectomy (~05/15/19) Total vaginal hysterectomy converted to a total abdominal hysterectomy with Dr. Kelley Family History Father Heart disease Breast cancer Mother Heart disease Diabetes Hypercholesteremia Thyroid disease Hypertension Grandmother Breast cancer maternal Other NEWSOME (nonalcoholic steatohepatitis) Social History Smoking and tobacco/nicotine status: never used tobacco/nicotine Second hand smoke exposure: No Alcohol intake: current Alcohol intake frequency: few times a month Alcohol type: hard liquor Substance/Drug Use: never Female Reproductive History: Para: 2 Spontaneous abortions: No Physical Exam Const: COMMON NORMALS: patient oriented x3, no limitations, alert and well nourished GENERAL APPEARANCE: cooperative, in distress (From pain) and diaphoretic NUTRITIONAL APPEARANCE: obese morbidly obese ORIENTATION/CONSCIOUSNESS: Yes awake HENMT: COMMON NORMALS: normocephalic, atraumatic, hearing grossly normal bilaterally, external ears normal, Normal external nose present, Normal nasal mucous membranes and turbinates present and moist oral mucous membranes HEAD & SCALP: normocephalic and atraumatic NOSE: Normal external nose present and Normal nasal mucous membranes and turbinates present EXTERNAL EAR: Yes external ears normal Eye: COMMON NORMALS: Equal, round and reactive pupils present, EOMs intact bilaterally, conjunctivae normal and normal visual lopes by confrontation CONJUNCTIVA: Yes conjunctivae normal PUPIL: Yes Equal, round and reactive pupils present Neck/C-Spine: COMMON NORMALS: full ROM, supple, no meningeal signs and no JVD Resp: COMMON NORMALS: normal respiratory effort, No retractions, No use of accessory muscles and clear to auscultation bilaterally AUSCULTATION: clear to auscultation bilaterally, no crackles, no rales, no rhonchi and no wheezes Cardio: COMMON NORMALS: no JVD, regular rate, regular rhythm, S1 normal heart sound present, S2 normal heart sound present, No gallops present (Cardio), No clicks present (Cardio), No murmurs present (Cardio), No rub (Cardio) and Peripheral pulses 2+ throughout RATE: regular rate RHYTHM: regular rhythm HEART SOUNDS: S1 normal heart sound present and S2 normal heart sound present PERIPHERAL PULSES: Peripheral pulses 2+ throughout GI: COMMON NORMALS: Normal to inspection, nondistended, normoactive bowel sounds present, Soft to palpation, No hepatosplenomegaly present and no masses INSPECTION: Yes central obesity AUSCULTATION: Yes normoactive bowel sounds PALPATION: Yes Soft to palpation, Yes Tenderness to palpation present (GI) (Mild reproducible tenderness to palpation of the epigastrium), No Guarding due to palpation present (GI), No Rigid due to palpation and Yes No hepatosplenomegaly present RECTAL EXAM: deferred : COMMON NORMALS: Yes no CVA tenderness BLADDER/KIDNEY EXAM: Yes no CVA tenderness Back/Pelvis: COMMON NORMALS: no CVA tenderness Extremity: COMMON NORMALS: normal to inspection and full ROM Neuro: COMMON NORMALS: patient oriented x3, moves all extremities, no focal motor deficits and no sensory deficits noted SENSORIUM/ORIENTATION: Yes alert MENINGEAL SIGNS: Yes no meningeal signs Psych: COMMON NORMALS: mental status grossly normal, cooperative and speech normal SPEECH: Yes normal speech Skin: COMMON NORMALS: no rashes or lesions noted GENERAL SKIN EXAM: no rashes or lesions noted Course Vital Signs: Vital signs: Vital Signs Temperature 97.8 F 03/11/24 15:21 Pulse Rate 71 03/11/24 18:30 Respiratory Rate 19 H 03/11/24 18:30 Blood Pressure 113/82 03/11/24 19:35 Pulse Oximetry 98 03/11/24 19:35 Oxygen Delivery Me thod Room Air 03/11/24 19:35 MDM - Abdominal Pain Medical Decision Making Patient evaluated for few days of epigastric abdominal pain, history of cholecystectomy. On arrival her vitals were unremarkable, though she did appear in acute distress and was pacing around the room. Laboratory evaluation unremarkable, urinalysis unremarkable. negative. CT of the abdomen pelvis did show findings of potential duodenitis versus pancreatitis, though her lipase was within normal limits. She does note some relief of the pain with a GI cocktail, and I do believe patient's pain related to gastritis versus duodenal ulcer. She will be treated with Cipro and Flagyl to cover for any infection, and prescribed Carafate for pain relief. Also will send some Zofran for her nausea, and she is instructed to follow-up with primary care for further evaluation and potential outpatient GI referral. Strict return precautions were given, patient agrees and will be discharged home. Lab Data 03/11/24 15:46 03/11/24 15:46 Labs/Radiology: Radiology Impressions Abdomen/Pelvis CT 03/11/24 18:02 IMPRESSION: 1. Findings raising the question of duodenitis versus pancreatitis involving the pancreaticoduodenal groove. Consider correlation with serum lipase. Laboratory Results WBC 6.84 10^3/uL (3.29-11.43) 03/11/24 15:46 RBC 4.98 10^6/uL (3.85-5.65) 03/11/24 15:46 Hgb 13.70 g/dL (11.27-16.99) 03/11/24 15:46 Hct 44.2 % (36-47) 03/11/24 15:46 MCV 88.8 fl (85-98) 03/11/24 15:46 MCH 27.5 pg (27-33) 03/11/24 15:46 MCHC 31.0 g/dL (30-55) 03/11/24 15:46 RDW 14.5 % (12.1-15.1) 03/11/24 15:46 Plt Count 247 10^3/cmm (157-399) 03/11/24 15:46 MPV 9.9 fL (7.4-10.4) 03/11/24 15:46 Neut % (Auto) 58.5 % 03/11/24 15:46 Lymph % (Auto) 28.5 % 03/11/24 15:46 Lea % (Auto) 9.4 % 03/11/24 15:46 Eos % (Auto) 2.2 % 03/11/24 15:46 Baso % (Auto) 1.0 % 03/11/24 15:46 Neut # (Auto) 4.00 10^3/uL (1.8-7.7) 03/11/24 15:46 Lymph # (Auto) 2.0 10^3/uL (0.8-4.8) 03/11/24 15:46 Lea # (Auto) 0.6 10^3/uL (0.2-0.9) 03/11/24 15:46 Eos # (Auto) 0.2 10^3/uL (0.0-0.8) 03/11/24 15:46 Baso # (Auto) 0.1 10^3/uL (0.0-0.1) 03/11/24 15:46 Nucleated RBC % (auto) 0 % 03/11/24 15:46 Nucleated RBCs # 0.0 /100WBC 03/11/24 15:46 Sodium 138 mmol/L (136-145) 03/11/24 15:46 Potassium 3.8 mmol/L (3.5-5.1) 03/11/24 15:46 Chloride 103 mmol/L (98-107) 03/11/24 15:46 Carbon Dioxide 25 mmol/L (22-29) 03/11/24 15:46 Anion Gap 13.8 (5-19) 03/11/24 15:46 BUN 12 mg/dL (6-20) 03/11/24 15:46 Creatinine 0.9 mg/dL (0.5-0.9) 03/11/24 15:46 GFR Calculation 72.1 mL/min (90-130) L 03/11/24 15:46 Glucose 92 mg/dL (65-115) 03/11/24 15:46 Calculated Osmolality 285 mOsm/kg (285-295) 03/11/24 15:46 Calcium 9.2 mg/dL (8.5-10.5) 03/11/24 15:46 Total Bilirubin 0.4 mg/dL (0.15-1.2) 03/11/24 15:46 AST 17 U/L (0-32) 03/11/24 15:46 ALT 31 U/L (0-33) 03/11/24 15:46 Alkaline Phosphatase 92 U/L (35-105) 03/11/24 15:46 Total Protein 6.3 g/dL (6.6-8.7) L 03/11/24 15:46 Albumin 3.5 g/dL (3.5-5.2) 03/11/24 15:46 Globulin 2.8 g/dL (1.3-4.6) 03/11/24 15:46 Lipase 52 U/L (13-60) 03/11/24 15:46 HCG, Qual Negative (Negative) 03/11/24 15:46 Urine Color Yellow (Yellow) 03/11/24 15:54 Urine Appearance Slightly cloudy (CLEAR) 03/11/24 15:54 Urine pH 5 (5-7) 03/11/24 15:54 Ur Specific Sarah 1.020 (1.005-1.030) 03/11/24 15:54 Urine Protein Neg (Negative) 03/11/24 15:54 Urine Glucose (UA) Norm (Normal) 03/11/24 15:54 Urine Ketones Negative (Negative) 03/11/24 15:54 Urine Blood Neg (Negative) 03/11/24 15:54 Urine Nitrate Negative (Negative) 03/11/24 15:54 Urine Bilirubin Neg (Negative) 03/11/24 15:54 Urine Urobilinogen Norm mg/dL (Negative) 03/11/24 15:54 Ur Leukocyte Esterase Negative (Negative) 03/11/24 15:54 Urine RBC None /hpf (0-2) 03/11/24 15:54 Urine WBC None /hpf (0-5) 03/11/24 15:54 Ur Squamous Epith Cells 5-10 /hpf (0-5) H 03/11/24 15:54 Amorphous Sediment Not Reportable 03/11/24 15:54 Urine Bacteria 1+ /hpf (NONE) H 03/11/24 15:54 All radiology interpretation(s) finalized by discharge Discharge Plan Discharge Patient Disposition: Home Clinical Impression: Duodenitis Condition: Stable Prescriptions: New metronidazole 500 mg tablet 500 mg PO BID 7 Days Qty: 14 0RF Cipro 500 mg tablet 500 mg PO BID 10 Days Qty: 20 0RF Carafate 1 gram tablet 1 g PO BID Qty: 30 0RF ondansetron HCl 4 mg tablet 4 mg PO Q8H Qty: 30 0RF No Action acetaminophen [Tylenol Extra Strength] 500 mg tablet 1,000 mg PO TID PRN (Reason: Pain) (DME) Micro 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 (medial) See Rx Instructions .Route .MEDSUPPLY Qty: 1 0RF Rx Instructions: As directed metoprolol succinate 25 mg tablet extended release 24 hr 25 mg PO DAILY Qty: 90 3RF diclofenac sodium [Voltaren Arthritis Pain] 1 % gel 4 g topical QID Qty: 100 1RF Rx Instructions: apply to single knee, ankle, foot; for foot includes sole/toes/top of foot meloxicam 15 mg tablet 15 mg PO DAILY PRN fluconazole 150 mg tablet 150 mg PO Q3D 10 Days Qty: 4 0RF ibuprofen 200 mg Tablet 600 mg PO Q6H PRN (Reason: Pain) hydrocodone-acetaminophen 5-325 mg tablet 1 tab PO Q6H PRN (Reason: pain) Qty: 20 0RF diclofenac sodium 50 mg tablet,delayed release (DR/EC) 50 mg PO Q12H Qty: 20 0RF Miralax 17 gram/dose powder 17 g PO DAILY Qty: 510 0RF Rx Instructions: Take 1 scoop daily while taking pain medications. prednisone 20 mg tablet 60 mg PO DAILY Qty: 20 0RF Rx Instructions: 3 tabs (60 mg) x 3 days. 2 tabs (40 mg) x 3 days. 1 tab (20 mg) x 3 days. 1/2 tab (10 mg) x 4 days Discharge Orders: Discharge ED (Routine); Ordered 03/11/24 Ordered By: Michael Holman Referrals: Amrik Curtis DO [Primary Care Provider] - Discharge Diet: As Directed Discharge Activity: Increase activity as tolerated Patient Instructions: Duodenitis (ED) Activity Restrictions/Additional Instructions: Take antibiotics as prescribed. Carafate as directed. Zofran for nausea. Follow-up with primary care for GI referral for potential upper endoscopy. Clear liquid diet. Please return with any new or worsening symptoms you may have. Coding Level of Care Code ED Scissors Sharpener for Chg Fwd Documented by User: Onel Serra DO 03/15/24 06:23 HPI - Abdominal Pain General: Chief Complaint: Abdominal Pain Stated Complaint: abd pain Time Seen by Provider: 03/11/24 17:55 PFSH ED PFSH: Medical History Ganglion cyst of wrist Fibromyalgia Chronic migraine w/o aura w/o status migrainosus, not intractable Surgical History History of cholecystectomy (~09/2015) laparoscopic H/O dilation and curettage S/P cholecystectomy S/P dilatation and curettage History of section, low transverse History of bilateral tubal ligation History of hysterectomy (~05/15/19) Total vaginal hysterectomy converted to a total abdominal hysterectomy with Dr. Kelley Family History Father Heart disease Breast cancer Mother Heart disease Diabetes Hypercholesteremia Thyroid disease Hypertension Grandmother Breast cancer maternal Other NEWSOME (nonalcoholic steatohepatitis) Social History Smoking and tobacco/nicotine status: never used tobacco/nicotine Second hand smoke exposure: No Alcohol intake: current Alcohol intake frequency: few times a month Alcohol type: hard liquor Substance/Drug Use: never Course Vital Signs: Vital signs: Vital Signs Temperature 97.8 F 03/11/24 15:21 Pulse Rate 71 03/11/24 18:30 Respiratory Rate 19 H 03/11/24 18:30 Blood Pressure 113/82 03/11/24 19:35 Pulse Oximetry 98 03/11/24 19:35 Oxygen Delivery Me thod Room Air 03/11/24 19:35 MDM - Abdominal Pain Medical Decision Making Patient evaluated for few days of epigastric abdominal pain, history of cholecystectomy. On arrival her vitals were unremarkable, though she did appear in acute distress and was pacing around the room. Laboratory evaluation unremarkable, urinalysis unremarkable. negative. CT of the abdomen pelvis did show findings of potential duodenitis versus pancreatitis, though her lipase was within normal limits. She does note some relief of the pain with a GI cocktail, and I do believe patient's pain related to gastritis versus duodenal ulcer. She will be treated with Cipro and Flagyl to cover for any infection, and prescribed Carafate for pain relief. Also will send some Zofran for her nausea, and she is instructed to follow-up with primary care for further evaluation and potential outpatient GI referral. Strict return precautions were given, patient agrees and will be discharged home. Chart reviewed Lab Data 03/11/24 15:46 03/11/24 15:46 Labs/Radiology: Radiology Impressions Abdomen/Pelvis CT 03/11/24 18:02 IMPRESSION: 1. Findings raising the question of duodenitis versus pancreatitis involving the pancreaticoduodenal groove. Consider correlation with serum lipase. Laboratory Results WBC 6.84 10^3/uL (3.29-11.43) 03/11/24 15:46 RBC 4.98 10^6/uL (3.85-5.65) 03/11/24 15:46 Hgb 13.70 g/dL (11.27-16.99) 03/11/24 15:46 Hct 44.2 % (36-47) 03/11/24 15:46 MCV 88.8 fl (85-98) 03/11/24 15:46 MCH 27.5 pg (27-33) 03/11/24 15:46 MCHC 31.0 g/dL (30-55) 03/11/24 15:46 RDW 14.5 % (12.1-15.1) 03/11/24 15:46 Plt Count 247 10^3/cmm (157-399) 03/11/24 15:46 MPV 9.9 fL (7.4-10.4) 03/11/24 15:46 Neut % (Auto) 58.5 % 03/11/24 15:46 Lymph % (Auto) 28.5 % 03/11/24 15:46 Lea % (Auto) 9.4 % 03/11/24 15:46 Eos % (Auto) 2.2 % 03/11/24 15:46 Baso % (Auto) 1.0 % 03/11/24 15:46 Neut # (Auto) 4.00 10^3/uL (1.8-7.7) 03/11/24 15:46 Lymph # (Auto) 2.0 10^3/uL (0.8-4.8) 03/11/24 15:46 Lea # (Auto) 0.6 10^3/uL (0.2-0.9) 03/11/24 15:46 Eos # (Auto) 0.2 10^3/uL (0.0-0.8) 03/11/24 15:46 Baso # (Auto) 0.1 10^3/uL (0.0-0.1) 03/11/24 15:46 Nucleated RBC % (auto) 0 % 03/11/24 15:46 Nucleated RBCs # 0.0 /100WBC 03/11/24 15:46 Sodium 138 mmol/L (136-145) 03/11/24 15:46 Potassium 3.8 mmol/L (3.5-5.1) 03/11/24 15:46 Chloride 103 mmol/L (98-107) 03/11/24 15:46 Carbon Dioxide 25 mmol/L (22-29) 03/11/24 15:46 Anion Gap 13.8 (5-19) 03/11/24 15:46 BUN 12 mg/dL (6-20) 03/11/24 15:46 Creatinine 0.9 mg/dL (0.5-0.9) 03/11/24 15:46 GFR Calculation 72.1 mL/min (90-130) L 03/11/24 15:46 Glucose 92 mg/dL (65-115) 03/11/24 15:46 Calculated Osmolality 285 mOsm/kg (285-295) 03/11/24 15:46 Calcium 9.2 mg/dL (8.5-10.5) 03/11/24 15:46 Total Bilirubin 0.4 mg/dL (0.15-1.2) 03/11/24 15:46 AST 17 U/L (0-32) 03/11/24 15:46 ALT 31 U/L (0-33) 03/11/24 15:46 Alkaline Phosphatase 92 U/L (35-105) 03/11/24 15:46 Total Protein 6.3 g/dL (6.6-8.7) L 03/11/24 15:46 Albumin 3.5 g/dL (3.5-5.2) 03/11/24 15:46 Globulin 2.8 g/dL (1.3-4.6) 03/11/24 15:46 Lipase 52 U/L (13-60) 03/11/24 15:46 HCG, Qual Negative (Negative) 03/11/24 15:46 Urine Color Yellow (Yellow) 03/11/24 15:54 Urine Appearance Slightly cloudy (CLEAR) 03/11/24 15:54 Urine pH 5 (5-7) 03/11/24 15:54 Ur Specific Sarah 1.020 (1.005-1.030) 03/11/24 15:54 Urine Protein Neg (Negative) 03/11/24 15:54 Urine Glucose (UA) Norm (Normal) 03/11/24 15:54 Urine Ketones Negative (Negative) 03/11/24 15:54 Urine Blood Neg (Negative) 03/11/24 15:54 Urine Nitrate Negative (Negative) 03/11/24 15:54 Urine Bilirubin Neg (Negative) 03/11/24 15:54 Urine Urobilinogen Norm mg/dL (Negative) 03/11/24 15:54 Ur Leukocyte Esterase Negative (Negative) 03/11/24 15:54 Urine RBC None /hpf (0-2) 03/11/24 15:54 Urine WBC None /hpf (0-5) 03/11/24 15:54 Ur Squamous Epith Cells 5-10 /hpf (0-5) H 03/11/24 15:54 Amorphous Sediment Not Reportable 03/11/24 15:54 Urine Bacteria 1+ /hpf (NONE) H 03/11/24 15:54 Discharge Plan Discharge Patient Disposition: Home Clinical Impression: Duodenitis Condition: Stable Prescriptions: New metronidazole 500 mg tablet 500 mg PO BID 7 Days Qty: 14 0RF Cipro 500 mg tablet 500 mg PO BID 10 Days Qty: 20 0RF Carafate 1 gram tablet 1 g PO BID Qty: 30 0RF ondansetron HCl 4 mg tablet 4 mg PO Q8H Qty: 30 0RF No Action acetaminophen [Tylenol Extra Strength] 500 mg tablet 1,000 mg PO TID PRN (Reason: Pain) (DME) Micro 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 (medial) See Rx Instructions .Route .MEDSUPPLY Qty: 1 0RF Rx Instructions: As directed metoprolol succinate 25 mg tablet extended release 24 hr 25 mg PO DAILY Qty: 90 3RF diclofenac sodium [Voltaren Arthritis Pain] 1 % gel 4 g topical QID Qty: 100 1RF Rx Instructions: apply to single knee, ankle, foot; for foot includes sole/toes/top of foot meloxicam 15 mg tablet 15 mg PO DAILY PRN fluconazole 150 mg tablet 150 mg PO Q3D 10 Days Qty: 4 0RF ibuprofen 200 mg Tablet 600 mg PO Q6H PRN (Reason: Pain) hydrocodone-acetaminophen 5-325 mg tablet 1 tab PO Q6H PRN (Reason: pain) Qty: 20 0RF diclofenac sodium 50 mg tablet,delayed release (DR/EC) 50 mg PO Q12H Qty: 20 0RF Miralax 17 gram/dose powder 17 g PO DAILY Qty: 510 0RF Rx Instructions: Take 1 scoop daily while taking pain medications. prednisone 20 mg tablet 60 mg PO DAILY Qty: 20 0RF Rx Instructions: 3 tabs (60 mg) x 3 days. 2 tabs (40 mg) x 3 days. 1 tab (20 mg) x 3 days. 1/2 tab (10 mg) x 4 days Discharge Orders: Discharge ED (Routine); Ordered 03/11/24 Ordered By: Michael Holman Referrals: Amrik Curtis, [Primary Care Provider] - Discharge Diet: As Directed Discharge Activity: Increase activity as tolerated Patient Instructions: Duodenitis (ED) Activity Restrictions/Additional Instructions: Take antibiotics as prescribed. Carafate as directed. Zofran for nausea. Follow-up with primary care for GI referral for potential upper endoscopy. Clear liquid diet. Please return with any new or worsening symptoms you may have. Coding Level of Care Code ED Scissors Sharpener for Tiffanie Bhatt
[2024-03-11 18:10] VITALS: BP 157/97; O2SAT 96
[2024-03-11] MEDS: lidocaine 2% viscous 15 ML, aluminum-mag hydrox-simethicon 30 ML, sucralfate oral liq 1 GM PO (18:24)
[2024-03-11] MEDS: iohexol 350 mg/mL 500 mL Btl (per mL) IV (18:28)
[2024-03-11 18:30] VITALS: BP 119/76; PULSE 71; RESP 19; O2SAT 99
[2024-03-11] MEDS: metoclopramide 5 mg/mL SDV 2 mL 10 MG IVP (18:32)
[2024-03-11] MEDS: ciprofloxacin 500 mg Tablet PO (19:25)
[2024-03-11] MEDS: metroNIDAZOLE 500 MG Tablet PO (19:25)
[2024-03-11] MEDS: morphine 4 mg/mL SDV 1 mL IVP (19:32)
[2024-03-11 19:35] VITALS: BP 113/82; O2SAT 98
== END 2024-03-11 19:41 | disposition home or self-care (01) ==
PROVIDERS: Emergency Medicine; Emergency Provider Physician Assistant; PCP Family Medicine
DX: K29.80 Duodenitis without bleeding (principal)
CPT/HCPCS: 36415; 74177; 80053; 81001; 83690; 84703; 85025; 96374; 96375; 99285; J2270; J2765; Q9967

== ENCOUNTER 2024-04-24 06:21 | Day surgery (SDC) | payer OTHER, SELFPAY ==
[2024-04-24 06:31] VITALS: BP 157/90; PULSE 76; RESP 16; TEMP 36.3; O2SAT 97; BMI 59.8
[2024-04-24] MEDS: sodium chloride 0.9% 1,000 ML 30 ML IV (06:50)
--- NOTE | 2024-04-24 07:01 | P.ANESASSM_ITS ---
Pre-Anesthetic Assessment Height/Weight: Height 1.7 m Weight 173.272 kg Temp Pulse Resp BP Pulse Ox O2 Del Method 97.3 F L 76 16 157/90 97 Room Air 04/24/24 06:31 04/24/24 06:31 04/24/24 06:31 04/24/24 06:31 04/24/24 06:31 04/24/24 06:31 Operation Date: 04/24/24 07:30 Proposed Procedures p EGD 31116, R10.13, K29.80(Not Applicable) - Hermelindo Booker, DO Was Beta Faith taken within 24 hours: Yes Was Clonidine taken within 24 hours: N/A Last intake: Intake Last Liquid Date 04/23/24 Last Liquid Time 21:30 Last Solid Date 04/23/24 Last Solid Time 19:30 Social No alcohol and No tobacco Exam alert, oriented x 3, clear to auscultation bilaterally and regular rate & rhythm Airway Submandibular: within normal limits Cervical ROM: within normal limits Mallampati: Class III Dentition: loose Comments: Comments: bottom middle teeth are loose. top denture removed History/ROS No significant history except as noted and No significant complaints Pulmonary None reported CV/HEM Hypertension and Murmur None reported Hepatic None reported GI Gastroesophageal Reflux Disease epigastric pain. no symptoms today Metabolic Morbid Obesity Musc/skel None reported Neuropsych None reported Anesthetic Plan ASA status: 3 Anesthesia: Anesthesia Evaluation and MAC Risk of > 500 ml blood loss (7ml/kg in children): Yes, adequate IV access and fluids planned Medications/Allergies Home Medications Medication Instructions Recorded Confirmed Last Taken Type acetaminophen 500 mg tablet 1,000 mg PO TID PRN Pain 03/09/20 04/24/24 12/01/20 History (Tylenol Extra Strength) metoprolol succinate 25 mg 25 mg PO DAILY #90 tabs 08/07/23 04/24/24 04/24/24 Rx tablet,extended release 24 hr Biological Photographer Brace (medial) #1 ea 10/20/23 03/18/24 Unknown Rx ibuprofen 200 mg tablet 600 mg PO Q6H PRN Pain 11/05/23 04/24/24 Unknown History diclofenac sodium 1 % topical gel 4 g topical QID #100 grams 11/21/23 04/24/24 Unknown Rx (Voltaren Arthritis Pain) meloxicam 15 mg tablet 15 mg PO DAILY PRN Pain (Scale 02/27/24 07/17/24 07/14/24 History Score 4-6) diclofenac sodium 50 mg 50 mg PO Q12H #20 tabs 03/06/24 04/24/24 Unknown Rx tablet,delayed release hydrocodone 5 mg-acetaminophen 325 1 tab PO Q6H PRN pain #20 tabs 03/06/24 04/24/24 Unknown Rx mg tablet ondansetron HCl 4 mg tablet 4 mg PO Q8H #30 tabs 03/11/24 04/24/24 Unknown Rx pantoprazole 40 mg tablet,delayed 40 mg PO BID 6 weeks #84 tabs 03/18/24 04/24/24 04/24/24 Rx release (Protonix) Allergies Allergy/AdvReac Type Severity Reaction Status Date / Time Penicillins Allergy Severe ALGY-Anaphy Verified 03/18/24 08:24 laxis ON LICENSE OF [facility] Anesthesia Medical History Ganglion cyst of wrist Fibromyalgia Chronic migraine w/o aura w/o status migrainosus, not intractable Surgical History History of cholecystectomy (~09/2015) laparoscopic H/O dilation and curettage S/P cholecystectomy S/P dilatation and curettage History of section, low transverse History of bilateral tubal ligation History of hysterectomy (~05/15/19) Total vaginal hysterectomy converted to a total abdominal hysterectomy with Dr. Kelley Family History Father Heart disease Breast cancer Mother Heart disease Diabetes Hypercholesteremia Thyroid disease Hypertension Grandmother Breast cancer maternal Other NEWSOME (nonalcoholic steatohepatitis) Social History Smoking and tobacco/nicotine status: never used tobacco/nicotine Second hand smoke exposure: No Alcohol intake: current Alcohol intake frequency: few times a month Alcohol type: hard liquor Substance/Drug Use: never Female Reproductive History Para: 2 Spontaneous abortions: No Data Anesthesia Cardiac Studies: Echocardiogram 02/24/22
--- NOTE | 2024-04-24 07:36 | PM.HP ---
Providers/Chief Complaint Primary Care Provider: Amrik Curtis DO Chief Complaint: R10.13, K29.80 History of Present Illness Ally Savage is a 33 year old female Review of Systems General: Reports: 10 or more systems reviewed and unremarkable except in HPI and below Medications/Allergies Home Medications Medication Instructions Recorded Confirmed Last Taken Type acetaminophen 500 mg tablet 1,000 mg PO TID PRN Pain 03/09/20 04/24/24 12/01/20 History (Tylenol Extra Strength) metoprolol succinate 25 mg 25 mg PO DAILY #90 tabs 08/07/23 04/24/24 04/24/24 Rx tablet,extended release 24 hr [employer] (medial) #1 ea 10/20/23 03/18/24 Unknown Rx ibuprofen 200 mg tablet 600 mg PO Q6H PRN Pain 11/05/23 04/24/24 Unknown History diclofenac sodium 1 % topical gel 4 g topical QID #100 grams 11/21/23 04/24/24 Unknown Rx (Voltaren Arthritis Pain) meloxicam 15 mg tablet 15 mg PO DAILY PRN Pain (Scale 12/05/23 04/24/24 04/21/24 History Score 4-6) diclofenac sodium 50 mg 50 mg PO Q12H #20 tabs 03/06/24 04/24/24 Unknown Rx tablet,delayed release hydrocodone 5 mg-acetaminophen 325 1 tab PO Q6H PRN pain #20 tabs 03/06/24 04/24/24 Unknown Rx mg tablet ondansetron HCl 4 mg tablet 4 mg PO Q8H #30 tabs 03/11/24 04/24/24 Unknown Rx pantoprazole 40 mg tablet,delayed 40 mg PO BID 6 weeks #84 tabs 03/18/24 04/24/24 04/24/24 Rx release (Protonix) Allergies Allergy/AdvReac Type Severity Reaction Status Date / Time Penicillins Allergy Severe ALGY-Anaphy Verified 03/18/24 08:24 laxis PFSH Acute PFSH: Medical History Ganglion cyst of wrist Fibromyalgia Chronic migraine w/o aura w/o status migrainosus, not intractable Surgical History History of cholecystectomy (~09/2015) laparoscopic H/O dilation and curettage S/P cholecystectomy S/P dilatation and curettage History of section, low transverse History of bilateral tubal ligation History of hysterectomy (~05/15/19) Total vaginal hysterectomy converted to a total abdominal hysterectomy with Dr. Kelley Family History Father Heart disease Breast cancer Mother Heart disease Diabetes Hypercholesteremia Thyroid disease Hypertension Grandmother Breast cancer maternal Other NEWSOME (nonalcoholic steatohepatitis) Social History Smoking and tobacco/nicotine status: never used tobacco/nicotine Second hand smoke exposure: No Alcohol intake: current Alcohol intake frequency: few times a month Alcohol type: hard liquor Substance/Drug Use: never Female Reproductive History: Para: 2 Spontaneous abortions: No Vitals/I&O/Wt Last Vital Signs Temp 97.3 F L 04/24/24 06:31 Pulse 76 04/24/24 06:31 Resp 16 04/24/24 06:31 BP 157/90 04/24/24 06:31 Pulse Ox 97 04/24/24 06:31 O2 Del Method Room Air 04/24/24 06:31 Weight last 48 hrs Weight 382 lb A&P Assessment and plan (1) Epigastric pain: Plan egd Attestations Medical Necessity Statement*: home Coding Level of Care Code Acute Code for Chg Fwd Diagnoses Epigastric pain R10.13
[2024-04-24 07:45] VITALS: BP 121/72; PULSE 76; RESP 18; TEMP 36.2; O2SAT 95
[2024-04-24 07:56] VITALS: BP 127/65; PULSE 72; RESP 18; O2SAT 95
--- NOTE | 2024-04-24 08:15 | ANE.PACU2 ---
Inpatient post-anesthesia follow up: Airway intact: Yes Vital signs: Temperature 97.1 F Pulse Rate 72 Respiratory Rate 18 Blood Pressure 127/65 Pulse Oximetry 95 Oxygen Delivery Me thod Room Air Oxygen Flow Rate Fraction of Inspir ed Oxygen Hydration adequate: Yes Nausea and vomiting: No Pain level: 1 Mental status: Baseline
== END 2024-04-24 08:15 | disposition home or self-care (01) ==
PROVIDERS: PCP Family Medicine; Visit Provider Surgery
PROC: 0DJ08ZZ Inspection of Upper Intestinal Tract, Via Natural or Artificial Opening Endoscopic (ICD-10-PCS; CPT 43235; principal; 2024-04-24 07:30)
DX: R10.13 Epigastric pain (principal); M79.7 Fibromyalgia; K29.80 Duodenitis without bleeding; K29.50 Unspecified chronic gastritis without bleeding; E66.01 Morbid (severe) obesity due to excess calories; Z68.43 Body mass index [BMI] 50.0-59.9, adult; K21.9 Gastro-esophageal reflux disease without esophagitis
CPT/HCPCS: 43239; 45380; 88305; 88342; J2704; J3010; J7030

== ENCOUNTER → 2024-06-27 13:54 | Outpatient (BNVA) | payer OTHER, SELFPAY | PROVIDERS: PCP Family Medicine; Visit Provider Family Medicine | DX: R05.9 Cough, unspecified (principal) | CPT/HCPCS: 87426 ==

== ENCOUNTER → 2024-09-02 09:13 | Outpatient (BNVA) | payer OTHER, SELFPAY | PROVIDERS: PCP Family Medicine; Visit Provider Nurse Practitioner Family | DX: J02.9 Acute pharyngitis, unspecified (principal) | CPT/HCPCS: 87071; 87880 ==

== ENCOUNTER → 2025-01-07 08:20 | Outpatient (BNVA) | payer OTHER, SELFPAY | PROVIDERS: PCP Family Medicine; Visit Provider Podiatrist Foot & Ankle Surgery | DX: M79.672 Pain in left foot (principal); G57.62 Lesion of plantar nerve, left lower limb | CPT/HCPCS: 73630 ==

== ENCOUNTER 2025-01-22 07:48 | Outpatient (CLI) | payer OTHER, SELFPAY ==
[2025-01-22 08:24] LABS: Estmated Average Glucose 123; Hemoglobin A1C 5.9 % (4.0-6.0)
[2025-01-22 08:47] LABS: Free T4 Free Thyroxine 1.13 ng/dL (0.82-1.77); Testosterone Total 21.2 ng/dL (8.4-48.1); Thyroid Stimulating Hormone 1.86 uIU/mL (0.27-4.20)
[2025-01-23 17:04] LABS: Dehydroepiandrosterone Sulfate 85 mcg/dL (19-237)
== END 2025-01-22 07:49 | disposition home or self-care (01) ==
PROVIDERS: PCP Family Medicine; Visit Provider Internal Medicine
DX: E28.2 Polycystic ovarian syndrome (principal); R73.03 Prediabetes; E66.01 Morbid (severe) obesity due to excess calories; Z68.44 Body mass index [BMI] 60.0-69.9, adult; I10 Essential (primary) hypertension
CPT/HCPCS: 36415; 82627; 83036; 84403; 84439; 84443

== ENCOUNTER 2025-01-27 07:53 | Outpatient (CLI) | payer OTHER, SELFPAY ==
[2025-01-27 08:53] LABS: Urine Creatinine 140 mg/dL (28-217)
[2025-01-27 09:02] LABS: Total Volume Urine 1550 ml
== END 2025-01-27 07:54 | disposition home or self-care (01) ==
PROVIDERS: PCP Family Medicine; Visit Provider Internal Medicine
DX: E28.2 Polycystic ovarian syndrome (principal); R73.03 Prediabetes; E66.01 Morbid (severe) obesity due to excess calories; Z68.44 Body mass index [BMI] 60.0-69.9, adult; I10 Essential (primary) hypertension
CPT/HCPCS: 82530; 82570

== ENCOUNTER → 2025-02-04 15:29 | Outpatient (BNVA) | payer OTHER, SELFPAY | PROVIDERS: PCP Family Medicine; Visit Provider Orthopaedic Surgery | DX: M54.9 Dorsalgia, unspecified (principal) | CPT/HCPCS: 72110; 73523 ==

== ENCOUNTER 2025-02-10 15:41 | Outpatient (CLI) | payer OTHER, SELFPAY ==
--- NOTE | 2025-02-10 16:00 | MR_ITS ---
WS: [id number] MRI LUMBAR SPINE NONCONTRAST HISTORY: Back Pain, chronic pain with LEFT leg numbness. COMPARISON: None available. TECHNIQUE: Sagittal and axial multisequence imaging is submitted. Quality is suboptimal due to the body habitus. Normal lumbar alignment with no compression fractures or marrow edema. Mild desiccation and narrowing of the disc spaces. Conus terminates normally at L1-2 disc level. T12-L1: LEFT paracentral tiny osteophyte or disc. No stenosis. L1-L2: Poorly defined and mildly heterogeneous mass is noted beginning posterior to the mid L1 vertebral body and extending to the L1-2 disc level. This is an ill-defined mass of intermediate signal with contact on the conus and nerve roots. Signal abnormality extends over a length of 1.3 cm. There is contact and flattening of the ventral thecal sac with encroachment into the subarticular recesses. Ligamentum flavum and facet arthritis. Central, subarticular recess and foraminal stenosis. L2-L3: Mild annular disc bulging. Broad-based central disc protrusion asymmetric to the LEFT. There is encroachment upon the ventral thecal sac and subarticular recesses. Moderate central, bilateral subarticular recess and mild foraminal stenosis. There does appear to be additional shallow LEFT foraminal disc protrusion. L3-L4: Diffuse annular disc bulging asymmetric to the RIGHT. Ligamentum flavum and facet arthritis. Disc contacts the traversing L4 nerve roots. Additional RIGHT foraminal disc protrusion contacting the exiting RIGHT L3 nerve root. Mild to moderate central, subarticular recess and RIGHT foraminal stenosis. L4-L5: Diffuse annular disc bulging with facet and ligamentum flavum hypertrophy. Mild bilateral foraminal stenosis, LEFT greater than RIGHT. L5-S1: Facet arthritis and mild foraminal stenosis. Paravertebral soft tissues are negative. MR/MR lumbar spine wo con* [id number] IMPRESSION: 1. Ill-defined, intermediate signal mass beginning posterior to the mid L1 blaise tebral body and extending to the L1-2 disc level. This is probably an extruded disc herniation contacting the nerve roots and causing stenosis. Due to the unu sual appearance and signal consider follow-up MRI with gadolinium to ensure the location of this mass. Mass is contacting the nerve root and causing central, subarticular recess and foraminal stenosis. 2. L2-3: Broad-based central disc protrusion asymmetric to the LEFT. Moderate central, bilateral subarticular recess and mild foraminal stenosis. Additional shallow LEFT foraminal disc protrusion. 3. L3-4: Disc contacts the traversing RIGHT L4 and exiting RIGHT L3 nerve root . Mild to moderate central, subarticular recess and RIGHT foraminal stenosis. 4. L4-5: Mild bilateral foraminal stenosis, LEFT greater than RIGHT.
== END 2025-02-10 15:42 | disposition home or self-care (01) ==
LOC: RAD 15:42
PROVIDERS: PCP Family Medicine; Visit Provider Orthopaedic Surgery
DX: M48.061 Spinal stenosis, lumbar region without neurogenic claudication (principal); R93.7 Abnormal findings on diagnostic imaging of other parts of musculoskeletal system; M51.26 Other intervertebral disc displacement, lumbar region; M51.369 Other intervertebral disc degeneration, lumbar region without mention of lumbar back pain or lower extremity pain; M24.28 Disorder of ligament, vertebrae; M47.896 Other spondylosis, lumbar region; M47.897 Other spondylosis, lumbosacral region; M48.07 Spinal stenosis, lumbosacral region
CPT/HCPCS: 72148

== ENCOUNTER 2025-03-20 13:35 | Outpatient (CLI) | payer OTHER, SELFPAY ==
[2025-03-20] MEDS: gadobenate dimeglumine 20 mL vial IV (14:14)
--- NOTE | 2025-03-20 16:00 | MR_ITS ---
WS: [email or web address] MRI LUMBAR SPINE WITH CONTRAST TECHNIQUE: Sagittal T1, T2 and STIR imaging. Axial T1 and T2 imaging. Post gadolinium imaging was obtained. CLINICAL INFORMATION: M51.16 - Intervertebral disc disorders with radiculopathy... COMPARISON: 02/10/2025 FINDINGS: Imaging suboptimal due to body habitus. Prominent epidural fat. Previously described signal abnormality posterior to the L1 vertebral body is not seen today. This may have represented an flow artifact or possibly a small amount of blood products from disc herniation. No abnormal gadolinium enhancement. L1-L2: Central disc protrusion with slight effacement of the ventral thecal sac. Mild circumferential narrowing of the thecal sac mainly due to prominent epidural fat with facet arthropathy. Mild bilateral foraminal narrowing. L2-L3: LEFT paracentral disc protrusion. Impingement LEFT subarticular recess. Moderate narrowing of the thecal sac with prominent epidural fat. Moderate facet arthropathy. Mild LEFT foraminal narrowing with a small LEFT foraminal protrusion. L3-L4: Mild disc bulging. Moderate facet arthropathy. Mild RIGHT greater than LEFT foraminal narrowing. Mild narrowing of the thecal sac. L4-L5: Mild narrowing of the thecal sac. Moderate facet arthropathy. Foramen are patent. L5-S1: Mild disc bulging with endplate ridging. Slight contact of the S1 nerve roots. Moderate facet arthropathy. Foramen are patent. Visualized pelvic bony structures: Normal. Paravertebral soft tissues: Normal. MR/MR lumbar spine wo/w con [id number] IMPRESSION: 1. Previously described signal abnormality posterior to the L1 vertebral bod y is not seen today. This may have represented an flow artifact or possibly a s mall amount of blood products from disc herniation. 2. No other remarkable changes compared to the recent study.
== END 2025-03-20 13:36 | disposition home or self-care (01) ==
PROVIDERS: PCP Family Medicine; Visit Provider Orthopaedic Surgery
DX: M51.16 Intervertebral disc disorders with radiculopathy, lumbar region (principal)
CPT/HCPCS: 72158; A9577

== ENCOUNTER → 2025-04-14 07:05 | Outpatient (BNVA) | payer OTHER, SELFPAY | PROVIDERS: PCP Family Medicine; Visit Provider Podiatrist Foot & Ankle Surgery | DX: M79.671 Pain in right foot (principal); M77.41 Metatarsalgia, right foot; M19.071 Primary osteoarthritis, right ankle and foot | CPT/HCPCS: 73630 ==

== ENCOUNTER 2025-04-23 17:06 | Outpatient (CLI) | payer OTHER, SELFPAY ==
[2025-04-23 20:03] LABS: Estmated Average Glucose 128; Hemoglobin A1C 6.1 % (4.0-6.0)
== END 2025-04-23 17:07 | disposition home or self-care (01) ==
LOC: LAB 17:07
PROVIDERS: PCP Internal Medicine; Visit Provider Internal Medicine
DX: I10 Essential (primary) hypertension (principal); E66.01 Morbid (severe) obesity due to excess calories; Z68.44 Body mass index [BMI] 60.0-69.9, adult; R73.03 Prediabetes; E28.2 Polycystic ovarian syndrome
CPT/HCPCS: 36415; 83036

== ENCOUNTER 2025-05-02 11:06 | Outpatient (CLI) | payer OTHER, SELFPAY ==
[2025-05-02 12:05] LABS: Estmated Average Glucose 126; Hemoglobin A1C 6.0 % (4.0-6.0)
[2025-05-02 12:40] LABS: Free T4 Free Thyroxine 1.12 ng/dL (0.82-1.77); Thyroid Stimulating Hormone 1.73 uIU/mL (0.27-4.20)
== END 2025-05-02 11:07 | disposition home or self-care (01) ==
LOC: LAB 11:07
PROVIDERS: PCP Internal Medicine; Visit Provider Internal Medicine
DX: R73.03 Prediabetes (principal); E28.2 Polycystic ovarian syndrome; R63.5 Abnormal weight gain
CPT/HCPCS: 36415; 83036; 84439; 84443

== ENCOUNTER 2025-06-09 05:00 | Outpatient (RCR) | payer OTHER, SELFPAY | END 2025-07-08 23:59 | disposition home or self-care (01) | LOC: SPT 05:00 | PROVIDERS: PCP Family Medicine; Visit Provider Orthopaedic Surgery | DX: M54.9 Dorsalgia, unspecified (principal); G89.29 Other chronic pain | CPT/HCPCS: 97110 ==

== ENCOUNTER → 2025-07-01 09:40 | Outpatient (BNVA) | payer OTHER, SELFPAY | PROVIDERS: PCP Family Medicine; Visit Provider Nurse Practitioner | DX: R05.9 Cough, unspecified (principal) | CPT/HCPCS: 87426 ==

== ENCOUNTER 2025-07-17 07:01 | Outpatient (CLI) | payer OTHER, SELFPAY ==
[2025-07-17 07:57] LABS: Follicle Stimulating Hormone 3.8 mIU/mL
== END 2025-07-17 07:02 | disposition home or self-care (01) ==
PROVIDERS: PCP Family Medicine; Visit Provider Internal Medicine
DX: R61 Generalized hyperhidrosis (principal); E28.2 Polycystic ovarian syndrome
CPT/HCPCS: 36415; 82670; 83001; 83002

== ENCOUNTER 2025-07-22 07:52 | Outpatient (CLI) | payer OTHER, SELFPAY ==
--- NOTE | 2025-07-22 08:00 | MM_ITS ---
WS: [email or web address] DIAGNOSTIC BILATERAL DIGITAL BREAST TOMOSYNTHESIS MAMMOGRAPHY WITH CAD RIGHT breast ultrasound, limited HISTORY: N63.0 - Unspecified lump in unspecified breast COMPARISON: 05/04/2023, 12/03/2021 TECHNIQUE: Bilateral craniocaudad, mediolateral oblique, and mediolateral views are submitted with tomosynthesis and SM. Spot compression RIGHT MLO. Computer aided detection utilized. Breast composition: The breasts are almost entirely fatty. Palpable area in the RIGHT axilla is marked with a triangular marker. There is no mass identified in this area. This is a difficult area to visualize by mammography due to its high position. Ultrasound will also be performed. There are no suspicious masses or calcifications or distortion within either breast. RIGHT breast ultrasound, limited. Ultrasound directed to the RIGHT axilla in the area of the palpable nodule. There is no mass or nodule identified. No adenopathy seen on the ultrasound. MM/MM diag BI tomosynthesis [id number] IMPRESSION: BI-RADS: 2 - Benign. FOLLOW UP: Age 40 No mammographic or ultrasound abnormality noted in the RIGHT axilla.
--- NOTE | 2025-07-22 08:30 | US_ITS ---
NOTE: Report was unsigned for reason: Order was edited. Original Signature date and time was: 07/22/25 @ 0936 WS: [email or web address] DIAGNOSTIC BILATERAL DIGITAL BREAST TOMOSYNTHESIS MAMMOGRAPHY WITH CAD RIGHT breast ultrasound, limited HISTORY: N63.0 - Unspecified lump in unspecified breast COMPARISON: 05/04/2023, 12/03/2021 TECHNIQUE: Bilateral craniocaudad, mediolateral oblique, and mediolateral views are submitted with tomosynthesis and SM. Spot compression RIGHT MLO. Computer aided detection utilized. Breast composition: The breasts are almost entirely fatty. Palpable area in the RIGHT axilla is marked with a triangular marker. There is no mass identified in this area. This is a difficult area to visualize by mammography due to its high position. Ultrasound will also be performed. There are no suspicious masses or calcifications or distortion within either breast. RIGHT breast ultrasound, limited. Ultrasound directed to the RIGHT axilla in the area of the palpable nodule. There is no mass or nodule identified. No adenopathy seen on the ultrasound. MTDD US/US breast RT limited* [id number] IMPRESSION: BI-RADS: 2 - Benign. FOLLOW UP: Age 40 No mammographic or ultrasound abnormality noted in the RIGHT axilla.
== END 2025-07-22 07:53 | disposition home or self-care (01) ==
LOC: RAD 07:53
PROVIDERS: PCP Family Medicine; Visit Provider Nurse Practitioner Women's Health
DX: N63.31 Unspecified lump in axillary tail of the right breast (principal); R92.313 Mammographic fatty tissue density, bilateral breasts
CPT/HCPCS: 76641; 76642; 77062; G0279

== ENCOUNTER → 2025-07-29 12:09 | Outpatient (BNVA) | payer OTHER, SELFPAY | PROVIDERS: PCP Family Medicine; Visit Provider Nurse Practitioner | DX: M79.643 Pain in unspecified hand (principal) | CPT/HCPCS: 73130 ==

== ENCOUNTER → 2025-08-19 09:47 | Outpatient (BNVA) | payer OTHER, SELFPAY | PROVIDERS: PCP Family Medicine; Visit Provider Physician Assistant | DX: M17.11 Unilateral primary osteoarthritis, right knee (principal); M23.304 Other meniscus derangements, unspecified medial meniscus, left knee; Z46.89 Encounter for fitting and adjustment of other specified devices | CPT/HCPCS: 73560; 73565 ==

== ENCOUNTER 2025-08-19 14:36 | Outpatient (CLI) | payer OTHER, SELFPAY | END 2025-08-19 14:37 | disposition home or self-care (01) | LOC: SPT 14:37 | PROVIDERS: PCP Family Medicine; Visit Provider Physician Assistant | DX: Z46.89 Encounter for fitting and adjustment of other specified devices (principal); M25.562 Pain in left knee | CPT/HCPCS: L1812 ==

== ENCOUNTER → 2025-09-30 18:29 | Outpatient (BNVA) | payer OTHER, SELFPAY | PROVIDERS: PCP Family Medicine | DX: J02.9 Acute pharyngitis, unspecified (principal) | CPT/HCPCS: 87880 ==

== ENCOUNTER → 2025-10-06 07:45 | Outpatient (BNVA) | payer OTHER, SELFPAY | PROVIDERS: PCP Family Medicine; Visit Provider Podiatrist Foot & Ankle Surgery | DX: G57.61 Lesion of plantar nerve, right lower limb (principal); M79.671 Pain in right foot; M19.071 Primary osteoarthritis, right ankle and foot | CPT/HCPCS: 73630 ==

== ENCOUNTER 2025-10-07 06:54 | Outpatient (CLI) | payer OTHER, SELFPAY ==
--- NOTE | 2025-10-07 07:15 | MR_ITS ---
WS: [email or web address] MRI LEFT KNEE HISTORY: M17.0 - Bilateral primary osteoarthritis of knee COMPARISON: 11/16/2023, radiograph 08/19/2025 Anterior cruciate ligament: Intact. Posterior cruciate ligament: Intact. Medial collateral ligament: Central tear in the MCL is identified. No full- thickness tear. There is a small amount of edema associated with the MCL. Mild progression of the edema over the medial knee. Posterior lateral corner structures: Intact. Medial menisci: Significant fraying and intrasubstance degeneration in the posterior horn but no definite tear is identified. Progression of internal degeneration since the prior study. The anterior horn is intact. Lateral meniscus: Intact. Normal signal, size and shape. Extensor mechanism: Distal quadriceps tendon and patellar tendons are intact. Fluid and soft tissue: No significant joint effusion. Small amount of fluid in the suprapatellar bursa. No Thomas's cyst. Osseous and articular structures: Patellofemoral compartment: Mild chondromalacia at the patellar eminence. Mild joint space narrowing. Medial compartment: Moderate narrowing of the medial compartment with advancing chondromalacia along the femoral condyle and tibial plateau. There is new marrow edema in portions of the femoral condyle and along the tibial plateau and metaphysis. Marrow edema in joint space narrowing has progressed since 2023. Lateral compartment: Mild narrowing of the lateral compartment. Short segment area of cartilage delamination involving the weightbearing surface of the femoral condyle. No marrow edema MR/MR knee LT wo con* [id number] IMPRESSION: 1. Progression of medial compartment joint space narrowing and loss of cartila ge. New marrow edema in the femoral condyle and tibial plateau. 2. Focal delamination weightbearing surface lateral femoral condyle. 3. Central tear MCL. No full tear. Increasing edema surrounding the MCL. 4. Progression of internal derangement involving the posterior horn medial men iscus. Significant surface fraying but no definite tear identified. 5. Mild chondromalacia patellar eminence. 6. Partially extruded meniscus from the medial joint line.
== END 2025-10-07 06:55 | disposition home or self-care (01) ==
LOC: RAD 06:55
PROVIDERS: PCP Family Medicine; Visit Provider Physician Assistant
DX: M17.0 Bilateral primary osteoarthritis of knee (principal); M23.304 Other meniscus derangements, unspecified medial meniscus, left knee; M22.42 Chondromalacia patellae, left knee
CPT/HCPCS: 73721